=== PATIENT | male | born 1940 | race African-American/Black ===

== ENCOUNTER 2019-08-10 07:31 | Inpatient (IN) | payer MEDICARE, MEDICAID ==
[~2019-08-10 07:31] MED LIST: DEXTROSE 5%-WATER 250 ML with NOREPINEPHRINE BITARTRATE 8 MG IV PRN
[2019-08-10] MEDS ORDERED: CEFTRIAXONE INJ 1000 MG VIAL IV ONE (07:51)
[2019-08-10] MEDS ORDERED: VANCOMYCIN HCL INJ 1000 MG VIAL IV ONE (07:52)
--- NOTE | 2019-08-10 08:21 | RADIOLOGY REPORT (SQ) ---
EXAM DESCRIPTION: CHEST SINGLE VIEW COMPLETED DATE/TIME: 08/10/2019 7:58 am REASON FOR STUDY: post intubation COMPARISON: 04/19/2015 EXAM PARAMETERS: NUMBER OF VIEWS: Single AP view TECHNIQUE: Single frontal radiographic view of the chest acquired. RADIATION DOSE: NA LIMITATIONS: Patient rotation. FINDINGS: LUNGS AND PLEURA: No opacities, masses or pneumothorax. Minimal blunting of the left cost ophrenic angle possibly trace effusion versus scarring. MEDIASTINUM AND HILAR STRUCTURES: No masses. Contour normal. HEART AND VASCULAR STRUCTURES: Normal heart size. Aortic atherosclerosis. BONES: No acute findings. HARDWARE: Endotracheal tube tip at the thoracic inlet, 9.2 cm above the darius. Enteric tube tip ove rlies gastric body. OTHER: Gas-filled colonic loops under the right hemidiaphragm. IMPRESSION: Endotracheal tube tip at the thoracic inlet, 9.2 cm above the darius. Consider cherise cheng TECHNICAL DOCUMENTATION: JOB ID: [id number] [employer]- All Rights Reserved Reading location - IP/workstation name: [email or web address]
--- NOTE | 2019-08-10 08:25 | ER Document Report ---
ED General - General Chief Complaint: Other Stated Complaint: SEPSIS Time Seen by Provider: 08/10/19 08:00 Mode of Arrival: Medic Information source: Outside Facility Records Cannot obtain history due to: Dementia, Intubated, Uncooperative, Altered mental status Notes: Patient transferred from [facility] by EMS with a fever of 107.4. Patient has a history of dementia and seizures treated with Keppra. Patient is apparently full code. Source of fever likely sepsis. Patient was intubated by EMS in route here via RSI. ET tube. #7 temperature down to 104.2 axillary on arrival. Patient was started on IV fluid and levofed for hypotension en route. History and physical limited by patient's age and condition and dementia. 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 His primary care physician is Dr. Perez. His prior admissions here have been reviewed. TRAVEL OUTSIDE OF THE [place] IN LAST 30 DAYS: No - Related Data Allergies/Adverse Reactions: Iuxthfq-Lju-Fon Reductase Inhibitor Allergy (Unknown, Verified 07/17/16 08:01) Past Medical History - Social History Smoking Status: Unknown if Ever Smoked Family History: None, Hypertension - Past Medical History Cardiac Medical History: Reports: Hx Hypercholesterolemia, Hx Hypertension Denies: Hx Coronary Artery Disease, Hx Heart Attack Pulmonary Medical History: Denies: Hx Asthma, Hx Bronchitis, Hx COPD, Hx Pneumonia Neurological Medical History: Reports: Hx Cerebrovascular Accident - Paralysis on left arm, Hx Seizures Renal/ Medical History: Reports: Hx Benign Prostatic Hyperplasia GI Medical History: Reports: Hx Gastroesophageal Reflux Disease Musculoskeletal Medical History: Reports Hx Arthritis, Reports Hx Gout Past Surgical History: Reports: Hx Neurologic Surgery - Immunizations Hx Diphtheria, Pertussis, Tetanus Vaccination: Yes Review of Systems - Review of Systems -: Yes ROS unobtainable due to patient's medical condition Physical Exam - Vital signs Vitals: Resp BP Pulse Ox 15 153/75 H 99 08/10/19 08:15 08/10/19 08:15 08/10/19 08:15 Interpretation: Tachycardic, Febrile - General General appearance: Unresponsive - HEENT Head: Normocephalic, Atraumatic. No: Open wounds Eyes: Normal Conjunctiva: Normal Pupils: PERRL, Pinpoint Nasal: Normal Mouth/Lips: Normal Mucous membranes: Normal Pharynx: Normal Notes: INTUBATED - Respiratory Respiratory status: Respiratory distress Breath sounds: Normal - Cardiovascular Rhythm: Regular, Tachycardia Pulses: Normal: Radial - Abdominal Inspection: Other - R INGUINIAL HERNIA Distension: No distension Bowel sounds: Normal Tenderness: No: Rebound - Back Back: Normal - Extremities General upper extremity: Other - CONTRACTURE LUE - Neurological Neuro grossly intact: No - UNRESPONSIVE - Skin Skin Temperature: Hot Course - Re-evaluation Re-evalutation: 08/10/19 08:30 EKG per me shows sinus tachycardia at a rate of 113 with multiple premature ventricular contractions. QTc is prolonged at 510. Normal QRS axis. To treat high temperature, ice topical and cooling blanket have been ordered. Patient received 1 L of IV fluid in route and 2 more liters have been ordered. Per sepsis protocol I have ordered triple antibiotics IV. Cultures have also been ordered. Patient had an elevated lactate of 7 at [facility]. I anticipate admission to the ICU. Patient's blood pressure has come up to 110/70. 08/10/19 10:45 Discussed case in detail with Dr. Atkinson the bell cleaner who agrees to accept the patient to the ICU. Lab work has been reviewed. Chest x-ray per radiologist shows that the ET tube is 9 cm above the darius and we have advanced it [address] brain per radiologist shows no acute disease but old pathology from prior bleed. Patient is currently stable. We have been able to wean him off of the levo fed. His temperature has normalized down to 97 degrees. He has not woken up. - Vital Signs Vital signs: Temp Pulse Resp BP Pulse Ox 97.6 F 71 15 102/61 98 08/10/19 13:45 08/10/19 13:45 08/10/19 13:45 08/10/19 13:03 08/10/19 13:45 - Laboratory Result Diagrams: 08/10/19 08:12 08/10/19 08:12 Laboratory results interpreted by me: 08/10/19 08/10/19 08/10/19 08:12 08:12 08:12 RBC 3.69 L Hgb 10.6 L Hct 33.1 L RDW 17.6 H Plt Count 126 L Seg Neuts % (Manual) 79 H Band Neutrophils % 1 L PT 17.6 H Carbonic Acid ABG pCO2 ABG pO2 ABG HCO3 ABG Total CO2 ABG O2 Saturation Sodium 149.7 H Chloride 113 H Carbon Dioxide 17 L Anion Gap 20 H BUN 26 H Creatinine 1.92 H Est GFR ( Amer) 41 L Est GFR (MDRD) Non-Af 34 L Glucose 128 H Lactic Acid Calcium 7.7 L AST 64 H Total Protein 5.8 L Albumin 2.5 L Urine Blood 08/10/19 08/10/19 08/10/19 08:20 08:51 09:30 RBC Hgb Hct RDW Plt Count Seg Neuts % (Manual) Band Neutrophils % PT Carbonic Acid 0.92 L ABG pCO2 30.5 L ABG pO2 115.6 H ABG HCO3 16.3 L ABG Total CO2 17.2 L ABG O2 Saturation 98.1 H Sodium Chloride Carbon Dioxide Anion Gap BUN Creatinine Est GFR ( Amer) Est GFR (MDRD) Non-Af Glucose Lactic Acid 5.8 H Calcium AST Total Protein Albumin Urine Blood LARGE H Critical Care Note - Critical Care Note Total time excluding time spent on procedures (mins): 82 Discharge - Discharge Clinical Impression: Sepsis Qualifiers: Sepsis type: sepsis due to unspecified organism Sepsis acute organ dysfunction status: unspecified Qualified Code(s): A41.9 - Sepsis, unspecified organism Heat stroke Qualifiers: Encounter type: initial encounter Qualified Code(s): T67.01XA - Heatstroke and sunstroke, initial encounter Dementia Qualifiers: Dementia type: unspecified type Dementia behavioral disturbance: with behavioral disturbance Qualified Code(s): F03.91 - Unspecified dementia with behavioral disturbance Condition: Critical Disposition: ADMITTED INPATIENT Admitting Provider: Demetrio (Cushion Worker) Unit Admitted: ICU ED Sepsis - Sepsis Documentation Sepsis Patient: Yes - Vital Signs Interpretation: Tachycardic
[2019-08-10 08:38] LABS: HEMATOCRIT 33.1 % (37.9-51.0); HEMOGLOBIN 10.6 g/dL (13.5-17.0); MEAN CORPUSCULAR HEMOGLOBIN 28.7 pg (27.0-33.4); MEAN CORPUSCULAR HGB CONC 32.1 g/dL (32.0-36.0); MEAN CORPUSCULAR VOLUME 90 fl (80-97); PLATELET COUNT 126 10^3/uL (150-450); RED BLOOD COUNT 3.69 10^6/uL (4.35-5.55); RED CELL DISTRIBUTION WIDTH 17.6 % (11.5-14.0); WHITE BLOOD COUNT 9.4 10^3/uL (4.0-10.5)
[2019-08-10] MEDS ORDERED: PROPOFOL 1,000 MG/100 ML INFUS..BTL IV PRN (08:38)
[2019-08-10 08:41] LABS: INTERNATIONAL RATION (INR) 1.43; PROTHROMBIN TIME 17.6 SEC (11.4-15.4)
[2019-08-10 09:00] LABS: ALBUMIN 2.5 g/dL (3.5-5.0); ALKALINE PHOSPHATASE 60 U/L (38-126); ASPARTATE AMINO TRANSFERASE 64 U/L (17-59); BILIRUBIN,DIRECT 0.3 mg/dL (0.0-0.4); BILIRUBIN,TOTAL 0.6 mg/dL (0.2-1.3); BLOOD UREA NITROGEN 26 mg/dL (7-20); CALCIUM 7.7 mg/dL (8.4-10.2); CARBON DIOXIDE 17 mmol/L (22-30); CHLORIDE 113 mmol/L (98-107); GLUCOSE 128 mg/dL (75-110); POTASSIUM 3.9 mmol/L (3.6-5.0); TOTAL PROTEIN 5.8 g/dL (6.3-8.2)
[2019-08-10 09:01] LABS: ABSOLUTE LYMPHOCYTES# (MANUAL) 1.3 10^3/uL (0.5-4.7); ABSOLUTE MONOCYTES # (MANUAL) 0.5 10^3/uL (0.1-1.4); BAND NEUTROPHILS % (MANUAL) 1 % (3-5); BASOPHILS % (MANUAL) 1 % (0-2); EOSINOPHILS % (MANUAL) 0 % (0-6); LYMPHOCYTES % (MANUAL) 14 % (13-45); MONOCYTES % (MANUAL) 5 % (3-13); NUCLEATED RED BLOOD CELLS 1 /100 WBC (0); SEGMENTED NEUTROPHILS % (MAN) 79 % (42-78); TOTAL CELLS COUNTED 100
[2019-08-10 09:02] LABS: PLATELET COMMENT DECREASED
[2019-08-10 09:03] LABS: POIKILOCYTOSIS SLIGHT; TEAR DROP CELLS SLIGHT
[2019-08-10 09:08] LABS: ANION GAP 20 (5-19)
[2019-08-10] MEDS ORDERED: NOREPINEPHRINE BITARTRATE INJ/PF 4 MG/4 ML SDV IV ONE (09:11)
[2019-08-10 09:15] LABS: ARTERIAL BLOOD FIO2 40%; ARTERIAL BLOOD H2CO3 0.92 mmol/L (1.05-1.35); ARTERIAL BLOOD HCO3 16.3 mmol/L (20-24); ARTERIAL BLOOD O2 SATURATION 98.1 % (94-98); ARTERIAL BLOOD PCO2 30.5 mmHg (35-45); ARTERIAL BLOOD PH 7.35 (7.35-7.45); ARTERIAL BLOOD PO2 115.6 mmHg (80-100); ARTERIAL BLOOD TOTAL CO2 17.2 mmol/L (23-27)
[2019-08-10 09:53] LABS: APPEARANCE,URINE CLEAR; BILIRUBIN,URINE NEGATIVE (NEGATIVE); COLOR,URINE STRAW; GLUCOSE, URINE NEGATIVE (NEGATIVE); KETONES,URINE NEGATIVE (NEGATIVE); LEUKOCYTE ESTERASE,URINE NEGATIVE (NEGATIVE); NITRITE,URINE NEGATIVE (NEGATIVE); PROTEIN,URINE NEGATIVE (NEGATIVE); URIC ACID CRYSTALS,URINE TOO NUMEROUS TO CNT /HPF; URINE SPECIFIC GRAVITY 1.004; UROBILINOGEN,URINE NEGATIVE mg/dL (<2.0)
--- NOTE | 2019-08-10 10:35 | RADIOLOGY REPORT (SQ) ---
EXAM DESCRIPTION: CT HEAD WITHOUT COMPLETED DATE/TIME: 08/10/2019 10:25 am REASON FOR STUDY: SEIZURE COMPARISON: 04/19/2015 TECHNIQUE: Axial images acquired through the brain without intravenous contrast. Images reviewed wi th bone, brain and subdural windows. Additional sagittal and coronal reconstructions were generated. Images stored on PACS. All CT scanners at this facility use dose modulation, iterative reconstruction, and/or weight based d osing when appropriate to reduce radiation dose to as low as reasonably achievable (ALARA). [facility]: Dose Right [facility]: CareDose [facility]: Dose Right [facility]: Teradose 4D [facility]: Smart HappyBox RADIATION DOSE: CT Rad equipment meets quality standard of care and radiation dose reduction techniq ues were employed. CTDIvol: 53.2 mGy. DLP: 964 mGy-cm.mGy. LIMITATIONS: None. FINDINGS: VENTRICLES: Prominent. CEREBRUM: No masses. No hemorrhage. No midline shift. Areas of low density in the white matter mos t likely due to chronic micro-vascular ischemic change. No evidence for acute infarction. CEREBELLUM: No masses. No hemorrhage. No alteration of density. No evidence for acute infarction. EXTRAAXIAL SPACES: Age-related involutional change. No fluid collections. No masses. ORBITS AND GLOBE: No intra- or extraconal masses. Normal contour of globe without masses. CALVARIUM: No fracture. PARANASAL SINUSES: No fluid or mucosal thickening. SOFT TISSUES: No mass or hematoma. OTHER: No other significant finding. IMPRESSION: CHRONIC CHANGES OF ATROPHY AND MICROVASCULAR ISCHEMIA. NO ACUTE PROCESS. EVIDENCE OF ACUTE STROKE: NO. TECHNICAL DOCUMENTATION: JOB ID: [id number] Quality ID # [id number]: Final reports with documentation of one or more dose reduction techniques (e.g., Au tomated exposure control, adjustment of the mA and/or kV according to patient size, use of iterative reconstruction technique) 2010 [employer]- All Rights Reserved Reading location - IP/workstation name: [email or web address]
[2019-08-10] MEDS ORDERED: NORMAL SALINE 1000 ML 2,000 ML IV PRN (10:40)
[2019-08-10] MEDS ORDERED: NORMAL SALINE 1000 ML 1,000 ML IV PRN (10:49)
[2019-08-10] MEDS ORDERED: RINGERS SOLUTION,LACTATED 1,000 ML IV ONE ×2 (11:45)
[2019-08-10] MEDS ORDERED: VANCOMYCIN HCL 0 MG in DEXTROSE 5%-WATER 250 ML IV NR (11:45)
[2019-08-10] MEDS ORDERED: ONDANSETRON HCL INJ/PF 4 MG/2 ML SDV IV PRN (14:26)
[2019-08-10] MEDS ORDERED: IPRATROPIUM/ALBUTEROL 0.5-2.5 MG/3 ML AMPUL NEB PRN (14:26)
[2019-08-10] MEDS ORDERED: DEXTROSE 40% GEL 15 GM TUBE PO PRN ×2 (14:35)
[2019-08-10] MEDS ORDERED: GLUCAGON,HUMAN RECOMB 1 MG INJ IM PRN (14:35)
[2019-08-10] MEDS ORDERED: DEXTROSE 50%-WATER 25 GM/50 ML DISP.SYRIN IV PRN ×2 (14:35)
[2019-08-10] MEDS ORDERED: LEVETIRACETAM 500 MG in NORMAL SALINE 100 ML IV SCH (14:38)
--- NOTE | 2019-08-10 14:57 | CRITICAL CARE ADMISSION REPORT ---
HPI Date:: 08/10/19 Time:: 14:40 Reason for ICU Reason:: acute respirtory failure, septic shock,altered mental status HPI: Pt is an 79 yo man who resides in a NH. He has a h/o CVA, SAH, hemiplegia, dementia, HTN, who presented to the ED today. He was found to be severly hyperthermic with a temp of 108 at the NM. He was also altered. He was intubated by EMS. In the ED, he was cooled and was given IVF. He was also started on levophed and started on broad spectrum ATBX. He underwent a head CT which was negative for any acute findings. Upon arrival to the ICU, pt is intubated and unresponsive. He is currently off levophed and has an SBP in the 130s. - Diagnosis/Plan (1) Acute respiratory failure Qualifiers: Respiratory failure complication: unspecified whether with hypoxia or hypercapnia Qualified Code(s): J96.00 - Acute respiratory failure, unspecified whether with hypoxia or hypercapnia Is this a current diagnosis for this admission?: Yes (2) Septic shock Is this a current diagnosis for this admission?: Yes (3) Hyperthermia Is this a current diagnosis for this admission?: Yes (4) FABI (acute kidney injury) Is this a current diagnosis for this admission?: Yes (5) Seizure disorder Is this a current diagnosis for this admission?: Yes (6) H/O: CVA (cerebrovascular accident) Is this a current diagnosis for this admission?: Yes (7) SAH (subarachnoid hemorrhage) Is this a current diagnosis for this admission?: No (8) Dementia Qualifiers: Dementia type: unspecified type Is this a current diagnosis for this admission?: Yes (9) Encephalopathy Is this a current diagnosis for this admission?: Yes Past Medical History Past Medical History: CKD III, SAH, cerebral aneurysm, CVA, HLD, HTN, dementia, OA, BPH, bipolar disorder, aphasia Cardiac Medical History: Reports: Hyperlipidema, Hypertension Denies: Coronary Artery Disease, Myocardial Infarction Pulmonary Medical History: Denies: Asthma, Bronchitis, Chronic Obstructive Pulmonary Disease (COPD), Pneumonia Neurological Medical History: Reports: Seizures GI Medical History: Reports: Gastroesophageal Reflux Disease Musculoskeltal Medical History: Reports: Arthritis, Gout Hematology: Denies: Anemia Social/Family History - Social History Lives with: Mcfp Smoking Status: Unknown if Ever Smoked Frequency of Alcohol Use: Rare Hx Recreational Drug Use: No Hx Prescription Drug Abuse: No - Medication/Allergies Home Medications: Acetaminophen [Mapap] 5 ml PO Q4HP PRN 08/10/19 Amlodipine Besylate [Norvasc 5 mg Tablet] 5 mg PO QAM 08/10/19 Ammonium Lactate [Lac-Hydrin 12% Lotion 225Gm/Bottle] 1 applic TP ASDIR PRN 08/10/19 Atorvastatin Calcium [Lipitor 40 mg Tablet] 40 mg PO QHS 08/10/19 Carvedilol [Coreg 25 mg Tablet] 1 tab PO BID 08/10/19 Clonidine HCl [Catapres] 0.2 mg PO TID 08/10/19 Hydralazine HCl [Apresoline 50 mg Tablet] 50 mg PO TID 08/10/19 Levetiracetam [Keppra] 500 mg PO BIDP PRN 08/10/19 Melatonin [Melatonin 3 mg Tablet] 3 mg PO QHS 08/10/19 Omeprazole 20 mg PO QAM 08/10/19 Sertraline HCl [Zoloft] 100 mg PO QAM 08/10/19 Allergies/Adverse Reactions: Wyjlvap-Lue-Zdf Reductase Inhibitor Allergy (Unknown, Verified 07/17/16 08:01) Review of Systems ROS unobtainable: Due to endotracheal tube Physical Exam Vital Signs: Temp Pulse Resp BP Pulse Ox 97.6 F 71 15 102/61 98 08/10/19 13:45 08/10/19 13:45 08/10/19 13:45 08/10/19 13:03 08/10/19 13:45 Intake & Output 08/09/19 08/10/19 08/11/19 06:59 06:59 06:59 Intake Total 4670 Balance 4670 Weight 57.6 kg Weight/Height Weight 57.6 kg Height 5 ft 4 in General appearance: PRESENT: no acute distress, well-developed, well-nourished, other - intubated, unresponsive Head exam: PRESENT: atraumatic, normocephalic Neck exam: PRESENT: other - FROM, no stiffness Respiratory exam: PRESENT: clear to auscultation jason, unlabored Cardiovascular exam: PRESENT: RRR GI/Abdominal exam: PRESENT: soft, other - NTND Gentrourinary exam: PRESENT: indwelling catheter Extremities exam: PRESENT: other - contractures Laboratory/Radiographs Laboratory Results: 08/10/19 08:12 08/10/19 08:12 08/10/19 08/10/19 08/10/19 08:12 08:12 08:20 WBC 9.4 RBC 3.69 L Hgb 10.6 L Hct 33.1 L MCV 90 MCH 28.7 MCHC 32.1 RDW 17.6 H Plt Count 126 L Seg Neutrophils % Not Reportable Carbonic Acid HCO3/H2CO3 Ratio ABG pH ABG pCO2 ABG pO2 ABG HCO3 ABG O2 Saturation ABG Base Excess FiO2 Sodium 149.7 H Potassium 3.9 Chloride 113 H Carbon Dioxide 17 L Anion Gap 20 H BUN 26 H Creatinine 1.92 H Est GFR ( Amer) 41 L Glucose 128 H Lactic Acid 5.8 H Calcium 7.7 L Magnesium 1.8 Total Bilirubin 0.6 AST 64 H Alkaline Phosphatase 60 Total Protein 5.8 L Albumin 2.5 L Urine Color Urine Appearance Urine pH Ur Specific [place] Urine Protein Urine Glucose (UA) Urine Ketones Urine Blood Urine Nitrite Ur Leukocyte Esterase Urine WBC (Auto) Urine RBC (Auto) 08/10/19 08/10/19 08/10/19 08:51 09:30 11:27 WBC RBC Hgb Hct MCV MCH MCHC RDW Plt Count Seg Neutrophils % Carbonic Acid 0.92 L HCO3/H2CO3 Ratio 17:1 ABG pH 7.35 ABG pCO2 30.5 L ABG pO2 115.6 H ABG HCO3 16.3 L ABG O2 Saturation 98.1 H ABG Base Excess -8.0 FiO2 40% Sodium Potassium Chloride Carbon Dioxide Anion Gap BUN Creatinine Est GFR ( Amer) Glucose Lactic Acid 4.4 H Calcium Magnesium Total Bilirubin AST Alkaline Phosphatase Total Protein Albumin Urine Color STRAW Urine Appearance CLEAR Urine pH 8.0 Ur Specific [place] 1.004 Urine Protein NEGATIVE Urine Glucose (UA) NEGATIVE Urine Ketones NEGATIVE Urine Blood LARGE H Urine Nitrite NEGATIVE Ur Leukocyte Esterase NEGATIVE Urine WBC (Auto) 6 Urine RBC (Auto) >182 Impressions: Chest X-Ray 08/10/19 07:40 IMPRESSION: Endotracheal tube tip at the thoracic inlet, 9.2 cm above the darius. Consider advancing. Head CT 08/10/19 08:50 IMPRESSION: CHRONIC CHANGES OF ATROPHY AND MICROVASCULAR ISCHEMIA. NO ACUTE PROCESS. EVIDENCE OF ACUTE STROKE: NO. All labs, radiographs, diagnostic studies and EKGs were personally reviewed: Yes Critical Time Critical Time (minutes): 60 -: The care of a critically ill patient is dynamic. This note represents a static moment in the admission process. Orders and treatments may be given simultaneously and urgently, and time is not screening representative of the treatment process. This patient requires Critical Care secondary to life threatening organ or limb dysfunction. Without Critical Care services, the patient is at risk for increased mortality and morbidity. Provider Note Provider Note: Assessment: Critically ill 79 yo man with acute respiratory failure, septic shock, hyperthermia, encephalopathy, FABI, h/o seizure disorder, h/o CVA, h/o SAH. Plan: 1. Respiratory: acute respiratory failure. Intubated by EMS. Continue full vent support 2. CV: hypotension, resolved. Pt is off levophed. SBP in the 120s. Continue IVF 3. Neuro: fever, encephalopathy. LP by radiology today to eval for meningitis. Seizure disorder. Continue Keppra. EEG. Check TSH, UDS, and ammonia. 4. ID: septic shock, possible menigitis. LP today. Vanc and zosyn. Cultures pending. Check for influenza 5. Renal: FABI, CKD III. Metabolic acidosis. Start bicarb drip 6. Endocrine: accuchecks, SSI 7. Nutrition: NPO 8. Prophlxis: scds. No pharmacologic DVT prophylaxis pending LP. Critical Care time = 60 min, excluding procedures
--- NOTE | 2019-08-10 16:17 | Progress Note ---
Provider Note Provider Note: Pt went to radiology to get an LP. They were unsuccessful with the LP due to the patient's difficult anatomy.
--- NOTE | 2019-08-10 16:27 | EKG REPORT ---
SEVERITY:- ABNORMAL ECG - SINUS TACHYCARDIA REPOL ABNRM SUGGESTS ISCHEMIA, ANT-LAT LEADS PROLONGED QT INTERVAL : Confirmed by: Britta Bey MD 10-Aug-2019 16:26:24
[2019-08-10] MEDS: LEVETIRACETAM 500 MG/NACL-ISO 500 MG/100 ML RTUPB IV SCH (16:29)
[2019-08-10] MEDS: DEXTROSE 5%-WATER 1000 ML 1,000 ML with SODIUM BICARBONATE 150 MEQ IV PRN ×2 (16:30)
--- NOTE | 2019-08-10 16:30 | RADIOLOGY REPORT (SQ) ---
EXAM DESCRIPTION: LUMBAR PUNCTURE; FLUORO/NEEDLE PLACEMENT/SPINE COMPLETED DATE/TIME: 08/10/2019 4:15 pm REASON FOR STUDY: fever, altered mental status; FEVER, AMS COMPARISON: None. FLUOROSCOPY TIME: 59 seconds of fluoroscopy was used. 2 images saved to PACS. TECHNIQUE: Fluoroscopic guided lumbar puncture. LIMITATIONS: None. PROCEDURE: After written consent and assessment were obtained, the patient was brought into the fluo roscopy room and placed prone on the table. The patient's lower back was prepped in a sterile fashio n and an entry site was selected under live fluoroscopic guidance. The entry sites were anesthetized with 1% lidocaine. Multiple attempts were made for access into the thecal sac from the right paracen tral approach at the L3-4 and L4-5 levels which were unsuccessful due to osteophyte formation. An ad ditional attempt at paracentral approach at the L3-4 level was again unsuccessful. A fluoroscopic sp ot image was saved to PACS confirming level access. FINDINGS: Unsuccessful lumbar puncture IMPRESSION: Unsuccessful lumbar puncture due to severe degenerative changes and osteophyte formation s. Findings were discussed with Dr. Atkinson in the ICU. COMMENT: Patient medication list reviewed: Yes- Quality ID# [id number]:Eligible professional attests to doc umenting in the medical record they obtained, updated, or reviewed the patient's current medications. . Quality ID 145: Final reports for procedures using fluoroscopy that document radiation exposure nj niki, or exposure time and number of fluorographic images (if radiation exposure indices are not avail able) TECHNICAL DOCUMENTATION: JOB ID: [id number] [employer]- All Rights Reserved Reading location - IP/workstation name: [email or web address] [id number]
--- NOTE | 2019-08-10 16:30 | RADIOLOGY REPORT (SQ) ---
EXAM DESCRIPTION: LUMBAR PUNCTURE; FLUORO/NEEDLE PLACEMENT/SPINE COMPLETED DATE/TIME: 08/10/2019 4:15 pm REASON FOR STUDY: fever, altered mental status; FEVER, AMS COMPARISON: None. FLUOROSCOPY TIME: 59 seconds of fluoroscopy was used. 2 images saved to PACS. TECHNIQUE: Fluoroscopic guided lumbar puncture. LIMITATIONS: None. PROCEDURE: After written consent and assessment were obtained, the patient was brought into the fluo roscopy room and placed prone on the table. The patient's lower back was prepped in a sterile fashio n and an entry site was selected under live fluoroscopic guidance. The entry sites were anesthetized with 1% lidocaine. Multiple attempts were made for access into the thecal sac from the right paracen tral approach at the L3-4 and L4-5 levels which were unsuccessful due to osteophyte formation. An ad ditional attempt at paracentral approach at the L3-4 level was again unsuccessful. A fluoroscopic sp ot image was saved to PACS confirming level access. FINDINGS: Unsuccessful lumbar puncture IMPRESSION: Unsuccessful lumbar puncture due to severe degenerative changes and osteophyte formation s. Findings were discussed with Dr. Atkinson in the ICU. COMMENT: Patient medication list reviewed: Yes- Quality ID# [id number]:Eligible professional attests to doc umenting in the medical record they obtained, updated, or reviewed the patient's current medications. . Quality ID 145: Final reports for procedures using fluoroscopy that document radiation exposure nj niki, or exposure time and number of fluorographic images (if radiation exposure indices are not avail able) TECHNICAL DOCUMENTATION: JOB ID: [id number] [employer]- All Rights Reserved Reading location - IP/workstation name: [email or web address] [id number]
[2019-08-10] MEDS: LORAZEPAM INJ 2 MG/1 ML VIAL IV PRN (16:53)
[2019-08-10] MEDS ORDERED: CARVEDILOL 12.5 MG TABLET PO SCH (17:00)
[2019-08-10] MEDS ORDERED: INFLUENZA QUAD (6MOS+) 2019-20 VAC 0.5 ML SYR IM ONE (17:15)
[2019-08-10] MEDS: AMPICILLIN SODIUM 2 GM in NORMAL SALINE 100 ML IV SCH (17:44)
[2019-08-10] MEDS: INSULIN REG, HUMAN 100 UNIT/ML 3 ML VIAL (PYX) SUBCUT SCH ×2 (18:59→23:22)
[2019-08-10] MEDS: CEFTRIAXONE 2 GM/D5W RTU 2 GM/50 ML RTUPB IV SCH (21:55)
[2019-08-10] MEDS ORDERED: PIPERACILLIN SODIUM/TAZOBACTAM 2.25 GM in NORMAL SALINE 50 ML IV SCH (22:00)
[2019-08-10 23:30] LABS: URINE AMPHETAMINES SCREEN NEGATIVE; URINE BARBITURATES SCREEN NEGATIVE; URINE COCAINE SCREEN NEGATIVE; URINE MARIJUANA (THC) SCREEN NEGATIVE; URINE METHADONE SCREEN NEGATIVE; URINE PHENCYCLIDINE SCREEN NEGATIVE
[2019-08-10 23:36] LABS: URINE BENZODIAZEPINES SCREEN UNCONFIRMED POSITIVE
[2019-08-11 02:29] LABS: C DIFFICILE GDH NEGATIVE (NEGATIVE)
[2019-08-11] MEDS: DEXTROSE 5%-WATER 1000 ML 1,000 ML with SODIUM BICARBONATE 150 MEQ IV PRN ×2 (03:43)
[2019-08-11 04:24] LABS: ARTERIAL BLOOD BASE EXCESS -1.3 mmol/L; ARTERIAL BLOOD H2CO3 0.97 mmol/L (1.05-1.35); ARTERIAL BLOOD O2 SATURATION 98.7 % (94-98); ARTERIAL BLOOD PCO2 32.1 mmHg (35-45); ARTERIAL BLOOD PH 7.45 (7.35-7.45); ARTERIAL BLOOD PO2 127.8 mmHg (80-100); ARTERIAL BLOOD TOTAL CO2 22.9 mmol/L (23-27)
[2019-08-11 04:26] LABS: ARTERIAL BLOOD FIO2 30%
[2019-08-11 04:55] LABS: ALBUMIN 2.7 g/dL (3.5-5.0); ALKALINE PHOSPHATASE 79 U/L (38-126); ANION GAP 13 (5-19); ASPARTATE AMINO TRANSFERASE 330 U/L (17-59); BILIRUBIN,TOTAL 1.2 mg/dL (0.2-1.3); BLOOD UREA NITROGEN 33 mg/dL (7-20); CALCIUM 7.4 mg/dL (8.4-10.2); CARBON DIOXIDE 24 mmol/L (22-30); CHLORIDE 110 mmol/L (98-107); GLUCOSE 89 mg/dL (75-110); TOTAL PROTEIN 5.9 g/dL (6.3-8.2)
[2019-08-11] MEDS: INSULIN REG, HUMAN 100 UNIT/ML 3 ML VIAL (PYX) SUBCUT SCH ×4 (05:00→23:31)
[2019-08-11] MEDS: AMPICILLIN SODIUM 2 GM in NORMAL SALINE 100 ML IV SCH ×2 (05:01→17:46)
[2019-08-11] MEDS: LEVETIRACETAM 500 MG/NACL-ISO 500 MG/100 ML RTUPB IV SCH (05:02)
[2019-08-11 05:28] LABS: POTASSIUM 2.9 mmol/L (3.6-5.0)
[2019-08-11 05:55] LABS: HEMATOCRIT 33.1 % (37.9-51.0); MEAN CORPUSCULAR HEMOGLOBIN 28.6 pg (27.0-33.4); MEAN CORPUSCULAR HGB CONC 33.3 g/dL (32.0-36.0); RED BLOOD COUNT 3.85 10^6/uL (4.35-5.55); RED CELL DISTRIBUTION WIDTH 17.5 % (11.5-14.0); WHITE BLOOD COUNT 10.7 10^3/uL (4.0-10.5)
[2019-08-11] MEDS ORDERED: PANTOPRAZOLE SODIUM 40 MG TABLET.DR PO SCH (06:00)
[2019-08-11 06:33] LABS: MEAN CORPUSCULAR VOLUME 86 fl (80-97)
[2019-08-11 06:34] LABS: PLATELET COUNT 46 10^3/uL (150-450)
[2019-08-11] MEDS ORDERED: FUROSEMIDE INJ/PF 40 MG/4 ML SDV IV ONE (09:00)
[2019-08-11] MEDS: DEXTROSE 5%-1/2 NORMAL SALINE 1,000 ML IV PRN ×2 (09:30→21:24)
[2019-08-11] MEDS: POTASSI CL 20 MEQ/50 ML RIDER 20 MEQ/50 ML RTUPB IV SCH ×2 (09:35→11:22)
[2019-08-11] MEDS: LORAZEPAM INJ 2 MG/1 ML VIAL IV PRN (09:45)
[2019-08-11] MEDS: PANTOPRAZOLE SODIUM 40 MG VIAL IV SCH (09:45)
[2019-08-11] MEDS: CEFTRIAXONE 2 GM/D5W RTU 2 GM/50 ML RTUPB IV SCH ×2 (09:45→21:24)
--- NOTE | 2019-08-11 09:57 | RADIOLOGY REPORT (SQ) ---
EXAM DESCRIPTION: CHEST SINGLE VIEW COMPLETED DATE/TIME: 08/11/2019 9:21 am REASON FOR STUDY: resp failure COMPARISON: AP view of the chest from 08/10/2019 EXAM PARAMETERS: NUMBER OF VIEWS: One view. TECHNIQUE: An AP view of the chest was obtained. RADIATION DOSE: NA LIMITATIONS: None. FINDINGS: LUNGS AND PLEURA: No consolidation, sizeable pleural effusion or pneumothorax. MEDIASTINUM AND HILAR STRUCTURES: No mediastinal or hilar contour abnormality. HEART AND VASCULAR STRUCTURES: The cardiac silhouette and pulmonary vasculature are within normal eason its. BONES: No acute findings. HARDWARE: The tip of the endotracheal tube projects 2.5 cm above the darius. The side hole of the en teric tube projects at the level of the gastroesophageal junction and should be repositioned. OTHER: No other finding. IMPRESSION: 1. The tip of the endotracheal tube projects 2.5 cm above the darius. 2. The side hole of the enteric tube projects at the level of the gastroesophageal junction and shoul d be repositioned (i.e. advanced forward 5 cm). TECHNICAL DOCUMENTATION: JOB ID: [id number] [employer]- All Rights Reserved Reading location - IP/workstation name: [email or web address]
[2019-08-11] MEDS ORDERED: CARVEDILOL 12.5 MG TABLET PO SCH (10:00)
[2019-08-11] MEDS: VANCOMYCIN HCL 500 MG in DEXTROSE 5%-WATER 100 ML IV SCH (10:15)
--- NOTE | 2019-08-11 11:24 | PDOC CRITICAL CARE PROG REPORT ---
General Date:: 08/11/19 - Critical Care Attending Note Resuscitation Status: Full Code Events in the past 12 to 24 Hours:: Pt remains intubated and comatose. Staff reports seizure activity. Staff also reports bloody oral secretions and bleeding from gums and teeth. Reason for ICU Addmission:: acute respirtory failure, septic shock,altered mental status Physical Exam Vital Signs: Temp Pulse Resp BP Pulse Ox 99.0 F 82 15 143/75 H 99 08/11/19 08:00 08/11/19 10:00 08/11/19 10:00 08/11/19 10:00 08/11/19 10:00 Intake & Output 08/10/19 08/11/19 08/12/19 06:59 06:59 06:59 Intake Total 6808 Output Total 1710 110 Balance 5098 -110 Weight 59.4 kg Weight/Height Weight 59.4 kg Height 5 ft 4 in General appearance: PRESENT: no acute distress, well-developed, well-nourished, other - intubated, comatose Head exam: PRESENT: atraumatic, normocephalic Mouth exam: PRESENT: other - poor dentition, bloody oral secretions Respiratory exam: PRESENT: clear to auscultation jason, unlabored Cardiovascular exam: PRESENT: RRR GI/Abdominal exam: PRESENT: soft, other - non-tender, non-distended Gentrourinary exam: PRESENT: other - condom catheter Extremities exam: PRESENT: other - contractures Neurological exam: PRESENT: other - comatose Laboratory/Radiographs Laboratory Results: 08/11/19 05:42 08/11/19 04:09 08/10/19 08/10/19 08/11/19 11:27 14:57 03:51 WBC RBC Hgb Hct MCV MCH MCHC RDW Plt Count Carbonic Acid 0.97 L HCO3/H2CO3 Ratio 22:1 ABG pH 7.45 ABG pCO2 32.1 L ABG pO2 127.8 H ABG HCO3 22.0 ABG O2 Saturation 98.7 H ABG Base Excess -1.3 FiO2 30% Sodium Potassium Chloride Carbon Dioxide Anion Gap BUN Creatinine Est GFR ( Amer) Glucose Lactic Acid 4.4 H 6.5 H Calcium Total Bilirubin AST Alkaline Phosphatase Ammonia Total Protein Albumin TSH 08/11/19 08/11/19 08/11/19 04:09 04:09 04:09 WBC Cancelled RBC Cancelled Hgb Cancelled Hct Cancelled MCV Cancelled MCH Cancelled MCHC Cancelled RDW Cancelled Plt Count Cancelled Carbonic Acid HCO3/H2CO3 Ratio ABG pH ABG pCO2 ABG pO2 ABG HCO3 ABG O2 Saturation ABG Base Excess FiO2 Sodium 146.7 H Potassium 2.9 L* D Chloride 110 H Carbon Dioxide 24 Anion Gap 13 BUN 33 H Creatinine 2.08 H Est GFR ( Amer) 37 L Glucose 89 Lactic Acid Calcium 7.4 L Total Bilirubin 1.2 AST 330 H Alkaline Phosphatase 79 Ammonia Total Protein 5.9 L Albumin 2.7 L TSH 1.48 08/11/19 08/11/19 04:09 05:42 WBC 10.7 H RBC 3.85 L Hgb 11.0 L Hct 33.1 L MCV 86 D MCH 28.6 MCHC 33.3 RDW 17.5 H Plt Count 46 L Carbonic Acid HCO3/H2CO3 Ratio ABG pH ABG pCO2 ABG pO2 ABG HCO3 ABG O2 Saturation ABG Base Excess FiO2 Sodium Potassium Chloride Carbon Dioxide Anion Gap BUN Creatinine Est GFR ( Amer) Glucose Lactic Acid Calcium Total Bilirubin AST Alkaline Phosphatase Ammonia < 8.7 L Total Protein Albumin TSH Impressions: Guidance Fluoroscopy 08/10/19 00:00 IMPRESSION: Unsuccessful lumbar puncture due to severe degenerative changes and osteophyte formations. Findings were discussed with Dr. Atkinson in the ICU. Lumbar Puncture 08/10/19 00:00 IMPRESSION: Unsuccessful lumbar puncture due to severe degenerative changes and osteophyte formations. Findings were discussed with Dr. Atkinson in the ICU. Head CT 08/10/19 08:50 IMPRESSION: CHRONIC CHANGES OF ATROPHY AND MICROVASCULAR ISCHEMIA. NO ACUTE PROCESS. EVIDENCE OF ACUTE STROKE: NO. Chest X-Ray 08/11/19 08:21 IMPRESSION: 1. The tip of the endotracheal tube projects 2.5 cm above the darius. 2. The side hole of the enteric tube projects at the level of the gastroesophageal junction and should be repositioned (i.e. advanced forward 5 cm). Assessment and Plan - Diagnosis (1) Acute respiratory failure Qualifiers: Respiratory failure complication: unspecified whether with hypoxia or hypercapnia Qualified Code(s): J96.00 - Acute respiratory failure, unspecified whether with hypoxia or hypercapnia Is this a current diagnosis for this admission?: Yes (2) Septic shock Is this a current diagnosis for this admission?: Yes (3) Hyperthermia Is this a current diagnosis for this admission?: Yes (4) FABI (acute kidney injury) Is this a current diagnosis for this admission?: Yes (5) Seizure disorder Is this a current diagnosis for this admission?: Yes (6) H/O: CVA (cerebrovascular accident) Is this a current diagnosis for this admission?: Yes (7) SAH (subarachnoid hemorrhage) Is this a current diagnosis for this admission?: No (8) Dementia Qualifiers: Dementia type: unspecified type Dementia behavioral disturbance: with behavioral disturbance Qualified Code(s): F03.91 - Unspecified dementia with behavioral disturbance Is this a current diagnosis for this admission?: Yes (9) Encephalopathy Is this a current diagnosis for this admission?: Yes Plan Summary: Assessment: Critically ill 79 yo man with acute respiratory failure, septic shock, hyperthermia, encephalopathy, FABI, h/o seizure disorder, h/o CVA, h/o SA H, coma,thrombocytopenia Plan: 1. Respiratory: acute respiratory failure. Vent day 2. Continue full vent support 2. CV: HTN. D/C IVF. Give lasix. Increase coreg 3. Neuro: fever, encephalopathy, coma, seizures. LP attempted by radiology yesterday, but was unsuccessful. Will continue to treat empiraclly for meningitis with vanc,ampicillin, rocephin. Pt having seizures. Will increase keppra to 1 gram BID. EEG pending. Unable to get MRI while on vent. 4. ID: septic shock, possible menigitis. LP attempt by radiology was unsuccessful. Day 2 Vanc, ampicillin, rocephin. Cultures pending. Check for in fluenza 5. Renal: FABI, CKD III. Cr has increased to 2.08 from 1.92. Metabolic acidosis has resolved. Will d/c bicarbonate drip. Pt is now hypertensive. Will give lasix. 6. Heme: thrombocytopenia due to sepsis. Pt has not been on any heparin products 7. GI: GERD. Gastritis. Continue IV protonix 8. Endocrine: accuchecks, SSI 9. Nutrition: Dietarty consult for tube feeds 10. Prophlxis: scds. No pharmacologic DVT prophylaxis b/c thrombocytopenia Critical Care time = 45 min, excluding procedures Critical Time Critical Time (minutes): 45 Level of Care: ICU -: 1. The care of a critical patient is a dynamic process. This note is a traffic representative synopsis but static in nature. The timeframe for treatments given in order is not necessarily the actual time these treatments may have been done. 2. This patient requires critical care secondary to ongoing requirements for therapy not offered or safe outside the critical care environment. Transfer to a lower level of care will result in altered life or limb morbidity and mortality. 3. Multidisciplinary rounds completed. 4. ABCDE bundle addressed.
[2019-08-11 13:14] LABS: A TYPE INFLUENZA AG NEGATIVE (NEGATIVE); B INFLUENZA AG NEGATIVE (NEGATIVE)
[2019-08-11] MEDS: LEVETIRACETAM 1000 MG/NACL-ISO 1,000 MG/100 ML RTUPB IV SCH (17:46)
[2019-08-12] MEDS: AMPICILLIN SODIUM 2 GM in NORMAL SALINE 100 ML IV SCH ×3 (05:02→18:53)
[2019-08-12] MEDS: LEVETIRACETAM 1000 MG/NACL-ISO 1,000 MG/100 ML RTUPB IV SCH ×2 (05:02→17:56)
[2019-08-12] MEDS: INSULIN REG, HUMAN 100 UNIT/ML 3 ML VIAL (PYX) SUBCUT SCH ×3 (05:05→18:14)
[2019-08-12 05:24] LABS: ARTERIAL BLOOD BASE EXCESS 2.7 mmol/L; ARTERIAL BLOOD FIO2 25%; ARTERIAL BLOOD H2CO3 0.93 mmol/L (1.05-1.35); ARTERIAL BLOOD HCO3 25.1 mmol/L (20-24); ARTERIAL BLOOD O2 SATURATION 98.7 % (94-98); ARTERIAL BLOOD PH 7.53 (7.35-7.45); ARTERIAL BLOOD PO2 119.1 mmHg (80-100); ARTERIAL BLOOD TOTAL CO2 26.1 mmol/L (23-27)
[2019-08-12 06:12] LABS: HEMATOCRIT 32.7 % (37.9-51.0); HEMOGLOBIN 11.1 g/dL (13.5-17.0); MEAN CORPUSCULAR HEMOGLOBIN 28.6 pg (27.0-33.4); MEAN CORPUSCULAR HGB CONC 33.9 g/dL (32.0-36.0); MEAN CORPUSCULAR VOLUME 84 fl (80-97); RED BLOOD COUNT 3.89 10^6/uL (4.35-5.55); RED CELL DISTRIBUTION WIDTH 17.6 % (11.5-14.0); WHITE BLOOD COUNT 11.9 10^3/uL (4.0-10.5)
[2019-08-12 06:18] LABS: PLATELET COUNT 40 10^3/uL (150-450)
[2019-08-12 06:30] LABS: ALBUMIN 2.7 g/dL (3.5-5.0); ALKALINE PHOSPHATASE 72 U/L (38-126); ANION GAP 11 (5-19); BILIRUBIN,DIRECT 1.4 mg/dL (0.0-0.4); BLOOD UREA NITROGEN 37 mg/dL (7-20); CALCIUM 7.2 mg/dL (8.4-10.2); CARBON DIOXIDE 28 mmol/L (22-30); CHLORIDE 104 mmol/L (98-107); GLUCOSE 84 mg/dL (75-110); TOTAL PROTEIN 6.1 g/dL (6.3-8.2)
--- NOTE | 2019-08-12 07:47 | RADIOLOGY REPORT (SQ) ---
EXAM DESCRIPTION: CHEST SINGLE VIEW COMPLETED DATE/TIME: 08/12/2019 6:15 am REASON FOR STUDY: resp failure COMPARISON: 08/11/2019 FINDINGS: Single-view chest AP portable upright. Endotracheal and nasogastric tubes in good position. Mild retrocardiac opacity, doubt change. Lungs otherwise clear. TECHNICAL DOCUMENTATION: JOB ID: [id number] Reading location - IP/workstation name: [email or web address]
[2019-08-12 07:52] LABS: ASPARTATE AMINO TRANSFERASE 3324 U/L (17-59)
[2019-08-12] MEDS ORDERED: POTASSIUM CHLORIDE 20 MEQ PACKET PO ONE (08:20)
--- NOTE | 2019-08-12 08:53 | PDOC CRITICAL CARE PROG REPORT ---
General Date:: 08/12/19 - Critical Care Attending Note Resuscitation Status: Full Code Events in the past 12 to 24 Hours:: Pt remains intubated. Eyes are open today. Reason for ICU Addmission:: acute respirtory failure, septic shock,altered mental status Physical Exam Vital Signs: Temp Pulse Resp BP Pulse Ox 98.5 F 78 14 159/76 H 97 08/12/19 05:17 08/12/19 07:43 08/12/19 06:00 08/12/19 05:11 08/12/19 06:00 Intake & Output 08/11/19 08/12/19 08/13/19 06:59 06:59 06:59 Intake Total 6808 2273 Output Total 1710 1925 150 Balance 5098 348 -150 Weight 59.4 kg 58.8 kg Weight/Height Weight 58.8 kg Height 5 ft 4 in General appearance: PRESENT: no acute distress, well-developed, well-nourished, other - intubated, eyes open Head exam: PRESENT: atraumatic, normocephalic Respiratory exam: PRESENT: clear to auscultation jason, unlabored Cardiovascular exam: PRESENT: RRR GI/Abdominal exam: PRESENT: soft Gentrourinary exam: PRESENT: indwelling catheter Neurological exam: PRESENT: other - eyes open, unresponsive Laboratory/Radiographs Laboratory Results: 08/12/19 05:55 08/12/19 05:55 08/12/19 08/12/19 08/12/19 04:56 05:55 05:55 WBC 11.9 H RBC 3.89 L Hgb 11.1 L Hct 32.7 L MCV 84 MCH 28.6 MCHC 33.9 RDW 17.6 H Plt Count 40 L Carbonic Acid 0.93 L HCO3/H2CO3 Ratio 26:1 ABG pH 7.53 H ABG pCO2 31.0 L ABG pO2 119.1 H ABG HCO3 25.1 H ABG O2 Saturation 98.7 H ABG Base Excess 2.7 FiO2 25% Sodium 143.3 Potassium 3.0 L* Chloride 104 Carbon Dioxide 28 Anion Gap 11 BUN 37 H Creatinine 2.27 H Est GFR ( Amer) 34 L Glucose 84 Calcium 7.2 L Total Bilirubin 2.0 H AST 3324 H Alkaline Phosphatase 72 Total Protein 6.1 L Albumin 2.7 L Impressions: Guidance Fluoroscopy 08/10/19 00:00 IMPRESSION: Unsuccessful lumbar puncture due to severe degenerative changes and osteophyte formations. Findings were discussed with Dr. Atkinson in the ICU. Lumbar Puncture 08/10/19 00:00 IMPRESSION: Unsuccessful lumbar puncture due to severe degenerative changes and osteophyte formations. Findings were discussed with Dr. Atkinson in the ICU. Head CT 08/10/19 08:50 IMPRESSION: CHRONIC CHANGES OF ATROPHY AND MICROVASCULAR ISCHEMIA. NO ACUTE PROCESS. EVIDENCE OF ACUTE STROKE: NO. Assessment and Plan - Diagnosis (1) Acute respiratory failure Qualifiers: Respiratory failure complication: unspecified whether with hypoxia or hypercapnia Qualified Code(s): J96.00 - Acute respiratory failure, unspecified whether with hypoxia or hypercapnia Is this a current diagnosis for this admission?: Yes (2) Septic shock Is this a current diagnosis for this admission?: Yes (3) Hyperthermia Is this a current diagnosis for this admission?: Yes (4) FABI (acute kidney injury) Is this a current diagnosis for this admission?: Yes (5) Seizure disorder Is this a current diagnosis for this admission?: Yes (6) H/O: CVA (cerebrovascular accident) Is this a current diagnosis for this admission?: Yes (7) SAH (subarachnoid hemorrhage) Is this a current diagnosis for this admission?: No (8) Dementia Qualifiers: Dementia type: unspecified type Dementia behavioral disturbance: with behavioral disturbance Qualified Code(s): F03.91 - Unspecified dementia with behavioral disturbance Is this a current diagnosis for this admission?: Yes (9) Encephalopathy Is this a current diagnosis for this admission?: Yes Plan Summary: Assessment: Critically ill 79 yo man with acute respiratory failure, septic shock, hyperthermia, encephalopathy, FABI, h/o seizure disorder, h/o CVA, h/o SAH, coma,thrombocytopenia Plan: 1. Respiratory: acute respiratory failure. Vent day 3. Pt failed SBT.Continue full vent support 2. CV: HTN. D/C IVF. Give lasix. Bradycardia with coreg. Coreg stopped. Will sta rt norvasc. 3. Neuro: fever, encephalopathy, coma, seizures. LP attempted by radiology 08/10, but was unsuccessful. Will continue to treat empiraclly for meningitis with vanc,ampicillin, rocephin. Continue keppra 1 g BID. EEG pending. Unable to get MRI while on vent. 4. ID: severe sepsis, possible menigitis. LP attempt by radiology 08/10 was unsuccessful. Day 3 Vanc, ampicillin, rocephin. 5. Renal: FABI, CKD III. Cr has increased to 2.27. Pt still has good UOP 6. Heme: thrombocytopenia due to sepsis. Pt has not been on any heparin products 7. GI: GERD. Gastritis. Continue IV protonix 8. Endocrine: accuchecks, SSI 9. Nutrition: Will start tube feeds 10. Prophlxis: scds. No pharmacologic DVT prophylaxis b/c thrombocytopenia Critical Care time = 35 min, excluding procedures Critical Time Critical Time (minutes): 35 Level of Care: ICU -: 1. The care of a critical patient is a dynamic process. This note is a claim representative synopsis but static in nature. The timeframe for treatments given in order is not necessarily the actual time these treatments may have been done. 2. This patient requires critical care secondary to ongoing requirements for therapy not offered or safe outside the critical care environment. Transfer to a lower level of care will result in altered life or limb morbidity and mortality. 3. Multidisciplinary rounds completed. 4. ABCDE bundle addressed.
[2019-08-12] MEDS: CEFTRIAXONE 2 GM/D5W RTU 2 GM/50 ML RTUPB IV SCH ×2 (09:36→21:04)
[2019-08-12] MEDS: PANTOPRAZOLE SODIUM 40 MG VIAL IV SCH (09:37)
[2019-08-12] MEDS: ACETAMINOPHEN 325 MG TABLET PO PRN ×2 (09:48→15:26)
[2019-08-12] MEDS ORDERED: FUROSEMIDE INJ/PF 40 MG/4 ML SDV IV SCH (10:00)
[2019-08-12] MEDS ORDERED: AMLODIPINE BESYLATE 5 MG TABLET PO SCH (10:00)
[2019-08-12] MEDS: VANCOMYCIN HCL 500 MG in DEXTROSE 5%-WATER 100 ML IV SCH (15:26)
[2019-08-12] MEDS ORDERED: NORMAL SALINE 250 ML IV PRN ×2 (18:36)
--- NOTE | 2019-08-12 18:36 | Progress Note ---
Provider Note Provider Note: Called by RN to bedside for oral bleeding. She reports that pt may have bitten his tongue today during a seizure. Pt has poor dentition and is bleeding from his teeth and gums. Platelet count today was 40. Will repeat CBC and INR. Will change ATBX regimen from ampicillin to to unasyn for better gram negative covera ge. Will order platelet transfusion.
[2019-08-12 20:01] LABS: ABSOLUTE MONOCYTES (AUTO) 0.4 10^3/uL (0.1-1.4); ABSOLUTE NEUT (AUTO) 9.9 10^3/uL (1.7-8.2); BASOPHILS % (AUTO) 0.3 % (0-2); HEMATOCRIT 30.4 % (37.9-51.0); HEMOGLOBIN 10.3 g/dL (13.5-17.0); LYMPHOCYTES % (AUTO) 8.6 % (13-45); MEAN CORPUSCULAR HEMOGLOBIN 28.8 pg (27.0-33.4); MEAN CORPUSCULAR VOLUME 85 fl (80-97); MONOCYTES % (AUTO) 3.6 % (3-13); RED BLOOD COUNT 3.59 10^6/uL (4.35-5.55); RED CELL DISTRIBUTION WIDTH 17.8 % (11.5-14.0); SEGMENTED NEUTROPHILS % (AUTO) 87.5 % (42-78); TOTAL CELLS COUNTED % (AUTO) 100 %; WHITE BLOOD COUNT 11.3 10^3/uL (4.0-10.5)
[2019-08-12 20:18] LABS: INTERNATIONAL RATION (INR) 1.69; PROTHROMBIN TIME 20.1 SEC (11.4-15.4)
[2019-08-12 20:34] LABS: PLATELET COUNT 40 10^3/uL (150-450)
[2019-08-12] MEDS ORDERED: AMPICILLIN SOD/SULBACTAM 3 GM VIAL ONE (21:16)
[2019-08-12] MEDS: AMPICILLIN SODIUM/SULBACTAM NA 2 GM in NORMAL SALINE 100 ML IV SCH (21:49)
[2019-08-12 23:26] LABS: ABSOLUTE BASOPHILS # (AUTO) 0.1 10^3/uL (0.0-0.2); ABSOLUTE LYMPHOCYTES (AUTO) 0.8 10^3/uL (0.5-4.7); ABSOLUTE MONOCYTES (AUTO) 0.4 10^3/uL (0.1-1.4); ABSOLUTE NEUT (AUTO) 9.7 10^3/uL (1.7-8.2); BASOPHILS % (AUTO) 0.5 % (0-2); EOSINOPHILS % (AUTO) 0.1 % (0-6); HEMOGLOBIN 10.4 g/dL (13.5-17.0); LYMPHOCYTES % (AUTO) 7.5 % (13-45); MEAN CORPUSCULAR HGB CONC 34.5 g/dL (32.0-36.0); MEAN CORPUSCULAR VOLUME 84 fl (80-97); MONOCYTES % (AUTO) 3.8 % (3-13); RED BLOOD COUNT 3.57 10^6/uL (4.35-5.55); RED CELL DISTRIBUTION WIDTH 17.8 % (11.5-14.0); SEGMENTED NEUTROPHILS % (AUTO) 88.1 % (42-78); TOTAL CELLS COUNTED % (AUTO) 100 %
[2019-08-12 23:28] LABS: PLATELET COUNT 105 10^3/uL (150-450)
[2019-08-12 23:39] LABS: ALBUMIN 2.7 g/dL (3.5-5.0); ALKALINE PHOSPHATASE 70 U/L (38-126); ANION GAP 12 (5-19); BILIRUBIN,DIRECT 1.7 mg/dL (0.0-0.4); BILIRUBIN,TOTAL 2.4 mg/dL (0.2-1.3); BLOOD UREA NITROGEN 38 mg/dL (7-20); CALCIUM 7.3 mg/dL (8.4-10.2); CARBON DIOXIDE 26 mmol/L (22-30); CHLORIDE 104 mmol/L (98-107); GLUCOSE 100 mg/dL (75-110); PHOSPHORUS 3.2 mg/dL (2.5-4.5); POTASSIUM 3.2 mmol/L (3.6-5.0); TOTAL PROTEIN 6.2 g/dL (6.3-8.2)
[2019-08-13 00:16] LABS: ASPARTATE AMINO TRANSFERASE 2087 U/L (17-59)
[2019-08-13] MEDS: INSULIN REG, HUMAN 100 UNIT/ML 3 ML VIAL (PYX) SUBCUT SCH ×4 (00:28→17:31)
[2019-08-13] MEDS ORDERED: POTASSI CL 20 MEQ/50 ML RIDER 20 MEQ/50 ML RTUPB IV ONE (00:49)
[2019-08-13] MEDS ORDERED: MAGNESIUM SULFATE/D5W 1 GM/100 ML RTUPB IV ONE (00:50)
[2019-08-13] MEDS: POTASSI CL 20 MEQ/50 ML RIDER 20 MEQ/50 ML RTUPB IV SCH ×2 (01:05→03:00)
[2019-08-13] MEDS: MAGNESIUM SULFATE/D5W 1 GM/100 ML RTUPB IV SCH ×2 (01:06→02:03)
[2019-08-13] MEDS ORDERED: HYDRALAZINE HCL INJ/PF 20 MG/1 ML SDV ONE (04:19)
[2019-08-13] MEDS ORDERED: HYDRALAZINE HCL INJ/PF 20 MG/1 ML SDV IV ONE (05:00)
[2019-08-13] MEDS: LEVETIRACETAM 1000 MG/NACL-ISO 1,000 MG/100 ML RTUPB IV SCH ×2 (05:14→17:27)
[2019-08-13 05:32] LABS: HEMATOCRIT 30.1 % (37.9-51.0); HEMOGLOBIN 10.4 g/dL (13.5-17.0); MEAN CORPUSCULAR HEMOGLOBIN 29.2 pg (27.0-33.4); MEAN CORPUSCULAR HGB CONC 34.4 g/dL (32.0-36.0); MEAN CORPUSCULAR VOLUME 85 fl (80-97); RED BLOOD COUNT 3.54 10^6/uL (4.35-5.55); RED CELL DISTRIBUTION WIDTH 17.3 % (11.5-14.0); WHITE BLOOD COUNT 10.6 10^3/uL (4.0-10.5)
[2019-08-13 05:42] LABS: ALBUMIN 2.7 g/dL (3.5-5.0); ALKALINE PHOSPHATASE 71 U/L (38-126); ANION GAP 9 (5-19); BILIRUBIN,DIRECT 1.7 mg/dL (0.0-0.4); BILIRUBIN,TOTAL 2.4 mg/dL (0.2-1.3); BLOOD UREA NITROGEN 34 mg/dL (7-20); CALCIUM 7.3 mg/dL (8.4-10.2); CARBON DIOXIDE 27 mmol/L (22-30); CHLORIDE 106 mmol/L (98-107); GLUCOSE 139 mg/dL (75-110); POTASSIUM 3.6 mmol/L (3.6-5.0)
[2019-08-13 06:04] LABS: PLATELET COUNT 97 10^3/uL (150-450)
[2019-08-13 06:07] LABS: ASPARTATE AMINO TRANSFERASE 1607 U/L (17-59)
[2019-08-13] MEDS: HYDRALAZINE HCL 50 MG TABLET PO SCH ×3 (08:24→22:25)
[2019-08-13] MEDS: PANTOPRAZOLE SODIUM 40 MG VIAL IV SCH (09:29)
[2019-08-13] MEDS: AMLODIPINE BESYLATE 10 MG TABLET PO SCH (09:29)
[2019-08-13] MEDS: VANCOMYCIN HCL 500 MG in DEXTROSE 5%-WATER 100 ML IV SCH (09:31)
[2019-08-13] MEDS: CEFTRIAXONE 2 GM/D5W RTU 2 GM/50 ML RTUPB IV SCH ×2 (09:34→22:25)
[2019-08-13] MEDS: AMPICILLIN SODIUM/SULBACTAM NA 2 GM in NORMAL SALINE 100 ML IV SCH ×2 (10:49→22:24)
--- NOTE | 2019-08-13 11:32 | PDOC CRITICAL CARE PROG REPORT ---
General Date:: 08/13/19 - Critical Care Attending Note Resuscitation Status: Full Code Events in the past 12 to 24 Hours:: Pt remains intubated. Got platelet transfusion overnight. Has sinus bradycardia and afib with slow ventricular response. Remains comatose. Reason for ICU Addmission:: acute respirtory failure, septic shock,altered mental status - Medications: Medications reviewed and adjusted accordingly: Yes Physical Exam Vital Signs: Temp Pulse Resp BP Pulse Ox 98.8 F 66 13 139/75 H 98 08/13/19 10:00 08/13/19 10:00 08/13/19 10:00 08/13/19 10:00 08/13/19 10:00 Intake & Output 08/12/19 08/13/19 08/14/19 06:59 06:59 06:59 Intake Total 2273 2313 40 Output Total 1925 1195 150 Balance 348 1118 -110 Weight 58.8 kg 59.9 kg Weight/Height Weight 59.9 kg Height 5 ft 4 in General appearance: PRESENT: no acute distress, thin, well-developed, well- nourished, other - comatose Head exam: PRESENT: atraumatic, normocephalic Mouth exam: PRESENT: other - poor dentition. Bleeding from mouth and gums. Respiratory exam: PRESENT: rhonchi, unlabored Cardiovascular exam: PRESENT: irregular rhythm GI/Abdominal exam: PRESENT: soft - non-tender, non-distended. No rebound, no gaurding. Gentrourinary exam: PRESENT: indwelling catheter Extremities exam: PRESENT: other - no pretibial edema Neurological exam: PRESENT: other - comatose Laboratory/Radiographs Laboratory Results: 08/13/19 04:18 08/13/19 04:18 08/12/19 08/12/19 08/12/19 19:45 19:45 23:07 WBC 11.3 H RBC 3.59 L Hgb 10.3 L Hct 30.4 L MCV 85 MCH 28.8 MCHC 34.0 RDW 17.8 H Plt Count 40 L Seg Neutrophils % 87.5 H Sodium 142.3 Potassium 3.2 L Chloride 104 Carbon Dioxide 26 Anion Gap 12 BUN 38 H Creatinine 2.06 H Est GFR ( Amer) 38 L Glucose 100 Calcium 7.3 L Phosphorus 3.2 Magnesium 1.5 L Total Bilirubin 2.4 H AST 2087 H Alkaline Phosphatase 70 Total Protein 6.2 L Albumin 2.7 L Blood Type A POSITIVE 08/12/19 08/13/19 08/13/19 23:07 04:18 04:18 WBC 11.0 H 10.6 H RBC 3.57 L 3.54 L Hgb 10.4 L 10.4 L Hct 30.0 L 30.1 L MCV 84 85 MCH 29.0 29.2 MCHC 34.5 34.4 RDW 17.8 H 17.3 H Plt Count 105 L D 97 L Seg Neutrophils % 88.1 H Sodium 142.2 Potassium 3.6 Chloride 106 Carbon Dioxide 27 Anion Gap 9 BUN 34 H Creatinine 1.92 H Est GFR ( Amer) 41 L Glucose 139 H Calcium 7.3 L Phosphorus Magnesium Total Bilirubin 2.4 H AST 1607 H Alkaline Phosphatase 71 Total Protein 6.0 L Albumin 2.7 L Blood Type Impressions: Guidance Fluoroscopy 08/10/19 00:00 IMPRESSION: Unsuccessful lumbar puncture due to severe degenerative changes and osteophyte formations. Findings were discussed with Dr. Atkinson in the ICU. Lumbar Puncture 08/10/19 00:00 IMPRESSION: Unsuccessful lumbar puncture due to severe degenerative changes and osteophyte formations. Findings were discussed with Dr. Atkinson in the ICU. Head CT 08/10/19 08:50 IMPRESSION: CHRONIC CHANGES OF ATROPHY AND MICROVASCULAR ISCHEMIA. NO ACUTE PROCESS. EVIDENCE OF ACUTE STROKE: NO. Assessment and Plan - Diagnosis (1) Acute respiratory failure Qualifiers: Respiratory failure complication: unspecified whether with hypoxia or hypercapnia Qualified Code(s): J96.00 - Acute respiratory failure, unspecified whether with hypoxia or hypercapnia Is this a current diagnosis for this admission?: Yes (2) Septic shock Is this a current diagnosis for this admission?: Yes (3) Hyperthermia Is this a current diagnosis for this admission?: Yes (4) FABI (acute kidney injury) Is this a current diagnosis for this admission?: Yes (5) Seizure disorder Is this a current diagnosis for this admission?: Yes (6) H/O: CVA (cerebrovascular accident) Is this a current diagnosis for this admission?: Yes (7) SAH (subarachnoid hemorrhage) Is this a current diagnosis for this admission?: No (8) Dementia Qualifiers: Dementia type: unspecified type Dementia behavioral disturbance: with behavioral disturbance Qualified Code(s): F03.91 - Unspecified dementia with behavioral disturbance Is this a current diagnosis for this admission?: Yes (9) Encephalopathy Is this a current diagnosis for this admission?: Yes (10) Thrombocytopenia Is this a current diagnosis for this admission?: Yes (11) Poor dentition Is this a current diagnosis for this admission?: Yes Plan Summary: Assessment: Critically ill 79 yo man with acute respiratory failure, septic shock, hyperthermia, encephalopathy, FABI, h/o seizure disorder, h/o CVA, h/o SAH, coma,thrombocytopenia, afib Plan: 1. Respiratory: acute respiratory failure. Vent day 4. Pt failed SBT.Continue full vent support 2. CV: HTN. Pt alternates between sinus bradycardia and afib with a slow ventricular rate. Beta blockers have been stopped. Electrolytes replaced. Increased his norvasc and resumed his home hydralazine for HTN. 3. Neuro: fever, encephalopathy, coma, seizures. LP attempted by radiology 08/10, but was unsuccessful. Will continue to treat empirically for meningitis with vanc,unasyn rocephin. Continue keppra 1 g BID. prn ativan. EEG pending. Unable to get MRI while on vent. 4. ID: severe sepsis, possible menigitis. LP attempt by radiology 08/10 was unsuccessful. Day 4 ATBX. Vanc, unasyn, rocephin. 5. Renal: FABI, CKD III. Cr decreased to 1.92. Pt still has good UOP 6. Heme: thrombocytopenia due to sepsis. Pt has not been on any heparin products. Pt with bleeding from mouth. s/p 1 unit of platelets on 08/12 7. ENT: bleeding from teeth and gums. Resolving with platelet transfusion. Will need ENT consult. 8. GI: GERD. Gastritis. Continue IV protonix 9. Endocrine: accuchecks, SSI 10 Nutrition: 0tube feeds 11. Prophlxis: scds. No pharmacologic DVT prophylaxis b/c thrombocytopenia 12. Ethics. Pt is a [place] of APS. Has a very poor prognosis. Is full code. Critical Care time = 40 min, excluding procedures Critical Time Critical Time (minutes): 40 Level of Care: ICU -: 1. The care of a critical patient is a dynamic process. This note is a textile designs sales representative synopsis but static in nature. The timeframe for treatments given in order is not necessarily the actual time these treatments may have been done. 2. This patient requires critical care secondary to ongoing requirements for therapy not offered or safe outside the critical care environment. Transfer to a lower level of care will result in altered life or limb morbidity and mortality. 3. Multidisciplinary rounds completed. 4. ABCDE bundle addressed.
--- NOTE | 2019-08-13 19:35 | EKG REPORT ---
SEVERITY:- ABNORMAL ECG - SINUS RHYTHM NONSPECIFIC REPOL ABNORMALITY, DIFFUSE LEADS PROLONGED QT INTERVAL : Confirmed by: Britta Bey MD 13-Aug-2019 19:34:07
[2019-08-14] MEDS: INSULIN REG, HUMAN 100 UNIT/ML 3 ML VIAL (PYX) SUBCUT SCH ×4 (00:15→18:42)
[2019-08-14 04:38] LABS: ABSOLUTE LYMPHOCYTES (AUTO) 0.8 10^3/uL (0.5-4.7); ABSOLUTE MONOCYTES (AUTO) 0.6 10^3/uL (0.1-1.4); ABSOLUTE NEUT (AUTO) 7.6 10^3/uL (1.7-8.2); BASOPHILS % (AUTO) 0.3 % (0-2); EOSINOPHILS % (AUTO) 0.1 % (0-6); HEMATOCRIT 30.3 % (37.9-51.0); HEMOGLOBIN 10.4 g/dL (13.5-17.0); LYMPHOCYTES % (AUTO) 8.8 % (13-45); MEAN CORPUSCULAR HEMOGLOBIN 29.1 pg (27.0-33.4); MEAN CORPUSCULAR HGB CONC 34.4 g/dL (32.0-36.0); MEAN CORPUSCULAR VOLUME 85 fl (80-97); MONOCYTES % (AUTO) 6.6 % (3-13); PLATELET COUNT 101 10^3/uL (150-450); RED BLOOD COUNT 3.59 10^6/uL (4.35-5.55); RED CELL DISTRIBUTION WIDTH 17.7 % (11.5-14.0); SEGMENTED NEUTROPHILS % (AUTO) 84.2 % (42-78); TOTAL CELLS COUNTED % (AUTO) 100 %
[2019-08-14] MEDS: LEVETIRACETAM 1000 MG/NACL-ISO 1,000 MG/100 ML RTUPB IV SCH ×2 (05:29→18:42)
[2019-08-14] MEDS: HYDRALAZINE HCL 50 MG TABLET PO SCH ×2 (05:29→13:50)
[2019-08-14 06:07] LABS: ALBUMIN 2.6 g/dL (3.5-5.0); ALKALINE PHOSPHATASE 85 U/L (38-126); ANION GAP 8 (5-19); ASPARTATE AMINO TRANSFERASE 623 U/L (17-59); BILIRUBIN,DIRECT 2.1 mg/dL (0.0-0.4); BILIRUBIN,TOTAL 3.1 mg/dL (0.2-1.3); BLOOD UREA NITROGEN 29 mg/dL (7-20); CALCIUM 7.6 mg/dL (8.4-10.2); CARBON DIOXIDE 26 mmol/L (22-30); CHLORIDE 108 mmol/L (98-107); GLUCOSE 94 mg/dL (75-110); POTASSIUM 3.2 mmol/L (3.6-5.0); TOTAL PROTEIN 5.7 g/dL (6.3-8.2)
[2019-08-14] MEDS: POTASSI CL 20 MEQ/50 ML RIDER 20 MEQ/50 ML RTUPB IV SCH ×2 (08:16→10:26)
--- NOTE | 2019-08-14 08:44 | RADIOLOGY REPORT (SQ) ---
EXAM DESCRIPTION: CHEST SINGLE VIEW COMPLETED DATE/TIME: 08/14/2019 6:16 am REASON FOR STUDY: acute respiratory failure COMPARISON: 08/12/2019. EXAM PARAMETERS: NUMBER OF VIEWS: One view. TECHNIQUE: Single frontal radiographic view of the chest acquired. RADIATION DOSE: NA LIMITATIONS: None. FINDINGS: LUNGS AND PLEURA: Left lower lobe retrocardiac density, unchanged. Otherwise clear. No l arge pleural effusion. No pneumothorax. MEDIASTINUM AND HILAR STRUCTURES: No masses. Contour normal. HEART AND VASCULAR STRUCTURES: Heart normal in size. Normal vasculature. BONES: No acute findings. HARDWARE: Stable endotracheal tube and nasogastric tube. OTHER: No other significant finding. IMPRESSION: NO SIGNIFICANT INTERVAL CHANGE. TECHNICAL DOCUMENTATION: JOB ID: [id number] [employer]- All Rights Reserved Reading location - IP/workstation name: [email or web address]
[2019-08-14] MEDS: AMLODIPINE BESYLATE 10 MG TABLET PO SCH (09:46)
[2019-08-14] MEDS: PANTOPRAZOLE SODIUM 40 MG VIAL IV SCH (09:46)
[2019-08-14] MEDS: AMPICILLIN SODIUM/SULBACTAM NA 2 GM in NORMAL SALINE 100 ML IV SCH (09:47)
[2019-08-14] MEDS: VANCOMYCIN HCL 500 MG in DEXTROSE 5%-WATER 100 ML IV SCH (09:49)
[2019-08-14 10:16] LABS: VANCOMYCIN,TROUGH 9.7 ug/mL (5.0-20.0)
[2019-08-14] MEDS: CEFTRIAXONE 2 GM/D5W RTU 2 GM/50 ML RTUPB IV SCH ×2 (11:00→22:43)
--- NOTE | 2019-08-14 11:03 | PDOC CRITICAL CARE PROG REPORT ---
General Date:: 08/14/19 - Critical Care Attending Note Resuscitation Status: Full Code Events in the past 12 to 24 Hours:: Pt remains intubated. Eyes open today, but he is not interactive. Reason for ICU Addmission:: acute respirtory failure, septic shock,altered mental status - Medications: Medications reviewed and adjusted accordingly: Yes Physical Exam Vital Signs: Temp Pulse Resp BP Pulse Ox 99.4 F 74 14 171/88 H 100 08/14/19 08:00 08/14/19 10:00 08/14/19 10:12 08/14/19 10:12 08/14/19 10:12 Intake & Output 08/13/19 08/14/19 08/15/19 06:59 06:59 06:59 Intake Total 2520 917 50 Output Total 1195 1060 175 Balance 1325 -143 -125 Weight 59.9 kg 61.3 kg Weight/Height Weight 61.3 kg Height 5 ft 4 in General appearance: PRESENT: no acute distress, well-developed, well-nourished - intubated, eyes open, not interactive Head exam: PRESENT: atraumatic, normocephalic Teeth exam: PRESENT: poor dentation Cardiovascular exam: PRESENT: irregular rhythm GI/Abdominal exam: PRESENT: soft Gentrourinary exam: PRESENT: indwelling catheter Extremities exam: PRESENT: other - contractures Neurological exam: PRESENT: other - eyes open, not interactive Laboratory/Radiographs Laboratory Results: 08/14/19 03:43 08/14/19 03:43 08/14/19 08/14/19 03:43 03:43 WBC 9.0 RBC 3.59 L Hgb 10.4 L Hct 30.3 L MCV 85 MCH 29.1 MCHC 34.4 RDW 17.7 H Plt Count 101 L Seg Neutrophils % 84.2 H Sodium 142.0 Potassium 3.2 L Chloride 108 H Carbon Dioxide 26 Anion Gap 8 BUN 29 H Creatinine 1.62 H Est GFR ( Amer) 50 L Glucose 94 Calcium 7.6 L Total Bilirubin 3.1 H AST 623 H Alkaline Phosphatase 85 Total Protein 5.7 L Albumin 2.6 L 08/10/19 08:12 Blood Blood Culture (PCR) - Final 08/10/19 20:25 Tracheal Aspirate Gram Stain - Final 08/10/19 20:25 Tracheal Aspirate Sputum Culture - Final Yeast, Not Arielle Albicans Reduced Normal Joann Impressions: Guidance Fluoroscopy 08/10/19 00:00 IMPRESSION: Unsuccessful lumbar puncture due to severe degenerative changes and osteophyte formations. Findings were discussed with Dr. Atkinson in the ICU. Lumbar Puncture 08/10/19 00:00 IMPRESSION: Unsuccessful lumbar puncture due to severe degenerative changes and osteophyte formations. Findings were discussed with Dr. Atkinson in the ICU. Head CT 08/10/19 08:50 IMPRESSION: CHRONIC CHANGES OF ATROPHY AND MICROVASCULAR ISCHEMIA. NO ACUTE PROCESS. EVIDENCE OF ACUTE STROKE: NO. Chest X-Ray 08/14/19 06:00 IMPRESSION: NO SIGNIFICANT INTERVAL CHANGE. Assessment and Plan - Diagnosis (1) Acute respiratory failure Qualifiers: Respiratory failure complication: unspecified whether with hypoxia or hypercapnia Qualified Code(s): J96.00 - Acute respiratory failure, unspecified whether with hypoxia or hypercapnia Is this a current diagnosis for this admission?: Yes (2) Septic shock Is this a current diagnosis for this admission?: Yes (3) Hyperthermia Is this a current diagnosis for this admission?: Yes (4) FABI (acute kidney injury) Is this a current diagnosis for this admission?: Yes (5) Seizure disorder Is this a current diagnosis for this admission?: Yes (6) H/O: CVA (cerebrovascular accident) Is this a current diagnosis for this admission?: Yes (7) SAH (subarachnoid hemorrhage) Is this a current diagnosis for this admission?: No (8) Dementia Qualifiers: Dementia type: unspecified type Dementia behavioral disturbance: with behavioral disturbance Qualified Code(s): F03.91 - Unspecified dementia with behavioral disturbance Is this a current diagnosis for this admission?: Yes (9) Encephalopathy Is this a current diagnosis for this admission?: Yes (10) Thrombocytopenia Is this a current diagnosis for this admission?: Yes (11) Poor dentition Is this a current diagnosis for this admission?: Yes Plan Summary: Assessment: Critically ill 79 yo man with acute respiratory failure, septic shock, hyperthermia, encephalopathy, FABI, h/o seizure disorder, h/o CVA, h/o SAH, coma,thrombocytopenia, afib Plan: 1. Respiratory: acute respiratory failure. Vent day 5. Will attempt SBP 2. CV: HTN. Pt alternates between sinus bradycardia and afib with a slow ventricular rate. Beta blockers have been stopped. Electrolytes replaced. Continue hydralzine and norvasc 3. Neuro: fever, encephalopathy, coma, seizures. Anoxic encephalopathy. LP attempted by radiology 08/10, but was unsuccessful. Will continue to treat empirically for meningitis with vanc,unasyn rocephin. Continue keppra 1 g BID. prn ativan. EEG done today. Unable to get MRI while on vent. 4. ID: severe sepsis, possible menigitis. LP attempt by radiology 08/10 was unsuccessful. Day 5 ATBX. Vanc, unasyn, rocephin. 5. Renal: FABI, CKD III. Cr decreased to 1.62. 6. Heme: thrombocytopenia due to sepsis. Pt has not been on any heparin products. Pt with bleeding from mouth. s/p 1 unit of platelets on 08/12 7. ENT: bleeding from teeth and gums, poor dentition. Resolved with platelet transfusion. Will need ENT consult eventually to have to have teeth pulled 8. GI: GERD. Gastritis. Continue IV protonix 9. Endocrine: accuchecks, SSI 10 Nutrition: tube feeds 11. Prophlxis: scds. No pharmacologic DVT prophylaxis b/c thrombocytopenia 12. Ethics. Pt is a [facility] of [facility]. Has a very poor prognosis. Is full code. Critical Care time = 35 min, excluding procedures Critical Time Critical Time (minutes): 35 Level of Care: ICU -: 1. The care of a critical patient is a dynamic process. This note is a claims service representative synopsis but static in nature. The timeframe for treatments given in order is not necessarily the actual time these treatments may have been done. 2. This patient requires critical care secondary to ongoing requirements for therapy not offered or safe outside the critical care environment. Transfer to a lower level of care will result in altered life or limb morbidity and mortality. 3. Multidisciplinary rounds completed. 4. ABCDE bundle addressed.
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
--- NOTE | 2019-08-14 13:38 | Progress Note ---
Provider Note Provider Note: Spoke with daughter and SW from [facility]. Explained to them that pt is comatose and that his prognosis is very poor. Explained to them his medical conditions. I have recommended that he be made DNR. I also told them that if patient's condition does not improve over the next 1-2 days, that they need to consider withdrawal of care.
[2019-08-14] MEDS: AMPICILLIN SODIUM/SULBACTAM NA 3 GM in NORMAL SALINE 100 ML IV SCH (18:42)
[2019-08-15] MEDS ORDERED: ACETAMINOPHEN 325 MG TABLET NG PRN (00:06)
[2019-08-15] MEDS: INSULIN REG, HUMAN 100 UNIT/ML 3 ML VIAL (PYX) SUBCUT SCH ×4 (00:10→17:50)
[2019-08-15] MEDS: HYDRALAZINE HCL 50 MG TABLET PO SCH (00:11)
[2019-08-15] MEDS ORDERED: HYDRALAZINE HCL 50 MG TABLET NG ONE (01:00)
[2019-08-15] MEDS: AMPICILLIN SODIUM/SULBACTAM NA 3 GM in NORMAL SALINE 100 ML IV SCH ×3 (01:28→17:57)
[2019-08-15 04:36] LABS: ABSOLUTE EOSINOPHILS # (AUTO) 0.1 10^3/uL (0.0-0.6); ABSOLUTE LYMPHOCYTES (AUTO) 0.9 10^3/uL (0.5-4.7); ABSOLUTE MONOCYTES (AUTO) 0.7 10^3/uL (0.1-1.4); ABSOLUTE NEUT (AUTO) 6.6 10^3/uL (1.7-8.2); BASOPHILS % (AUTO) 0.1 % (0-2); EOSINOPHILS % (AUTO) 1.1 % (0-6); HEMATOCRIT 30.6 % (37.9-51.0); HEMOGLOBIN 10.4 g/dL (13.5-17.0); LYMPHOCYTES % (AUTO) 10.5 % (13-45); MEAN CORPUSCULAR HGB CONC 34.1 g/dL (32.0-36.0); MEAN CORPUSCULAR VOLUME 85 fl (80-97); MONOCYTES % (AUTO) 8.5 % (3-13); PLATELET COUNT 120 10^3/uL (150-450); RED BLOOD COUNT 3.59 10^6/uL (4.35-5.55); RED CELL DISTRIBUTION WIDTH 17.9 % (11.5-14.0); SEGMENTED NEUTROPHILS % (AUTO) 79.8 % (42-78); TOTAL CELLS COUNTED % (AUTO) 100 %; WHITE BLOOD COUNT 8.3 10^3/uL (4.0-10.5)
[2019-08-15 05:08] LABS: ALBUMIN 2.6 g/dL (3.5-5.0); ALKALINE PHOSPHATASE 93 U/L (38-126); ANION GAP 9 (5-19); ASPARTATE AMINO TRANSFERASE 293 U/L (17-59); BILIRUBIN,DIRECT 1.9 mg/dL (0.0-0.4); BILIRUBIN,TOTAL 2.8 mg/dL (0.2-1.3); BLOOD UREA NITROGEN 21 mg/dL (7-20); CARBON DIOXIDE 23 mmol/L (22-30); CHLORIDE 111 mmol/L (98-107); GLUCOSE 96 mg/dL (75-110); POTASSIUM 3.4 mmol/L (3.6-5.0); TOTAL PROTEIN 5.8 g/dL (6.3-8.2)
[2019-08-15] MEDS: LEVETIRACETAM 1000 MG/NACL-ISO 1,000 MG/100 ML RTUPB IV SCH ×2 (05:50→17:57)
[2019-08-15] MEDS: HYDRALAZINE HCL 50 MG TABLET NG SCH ×3 (05:53→21:31)
[2019-08-15] MEDS: VANCOMYCIN HCL 750 MG in DEXTROSE 5%-WATER 250 ML IV SCH (05:53)
[2019-08-15] MEDS ORDERED: POTASSIUM CHLORIDE 20 MEQ PACKET PO ONE (07:14)
[2019-08-15] MEDS: AMLODIPINE BESYLATE 10 MG TABLET NG SCH (09:51)
[2019-08-15] MEDS: PANTOPRAZOLE SODIUM 40 MG VIAL IV SCH (09:51)
[2019-08-15] MEDS: CEFTRIAXONE 2 GM/D5W RTU 2 GM/50 ML RTUPB IV SCH ×2 (09:52→21:31)
--- NOTE | 2019-08-15 11:35 | PDOC CRITICAL CARE PROG REPORT ---
General Date:: 08/15/19 - Critical Care Attending Note Resuscitation Status: Do Not Resuscitate Events in the past 12 to 24 Hours:: Pt remains intubated and unresponsive. Reason for ICU Addmission:: acute respirtory failure, septic shock,altered mental status Physical Exam Vital Signs: Temp Pulse Resp BP Pulse Ox 97.7 F 74 19 147/70 H 100 08/15/19 08:00 08/15/19 10:00 08/15/19 10:00 08/15/19 10:00 08/15/19 10:00 Intake & Output 08/14/19 08/15/19 08/16/19 06:59 06:59 06:59 Intake Total 917 843 Output Total 1060 1700 175 Balance -143 -857 -175 Weight 61.3 kg 59.2 kg Weight/Height Weight 59.2 kg Height 5 ft 4 in General appearance: PRESENT: no acute distress, well-developed, well-nourished, other - intubated, NAD, unresponsive. Head exam: PRESENT: atraumatic, normocephalic Respiratory exam: PRESENT: clear to auscultation jason, unlabored Cardiovascular exam: PRESENT: RRR GI/Abdominal exam: PRESENT: soft Gentrourinary exam: PRESENT: indwelling catheter Musculoskeletal exam: PRESENT: other - flexion contractures Neurological exam: PRESENT: other - unresponsive Laboratory/Radiographs Laboratory Results: 08/15/19 03:57 08/15/19 03:57 08/15/19 08/15/19 03:57 03:57 WBC 8.3 RBC 3.59 L Hgb 10.4 L Hct 30.6 L MCV 85 MCH 29.0 MCHC 34.1 RDW 17.9 H Plt Count 120 L Seg Neutrophils % 79.8 H Sodium 143.2 Potassium 3.4 L Chloride 111 H Carbon Dioxide 23 Anion Gap 9 BUN 21 H Creatinine 1.36 H Est GFR ( Amer) > 60 Glucose 96 Calcium 8.0 L Total Bilirubin 2.8 H AST 293 H Alkaline Phosphatase 93 Total Protein 5.8 L Albumin 2.6 L 08/10/19 08:59 Blood Blood Culture - Final NO GROWTH IN 5 DAYS 08/10/19 08:12 Blood Blood Culture (PCR) - Final 08/10/19 08:12 Blood Blood Culture - Final Micrococcus Species Impressions: Guidance Fluoroscopy 08/10/19 00:00 IMPRESSION: Unsuccessful lumbar puncture due to severe degenerative changes and osteophyte formations. Findings were discussed with Dr. Atkinson in the ICU. Lumbar Puncture 08/10/19 00:00 IMPRESSION: Unsuccessful lumbar puncture due to severe degenerative changes and osteophyte formations. Findings were discussed with Dr. Atkinson in the ICU. Head CT 08/10/19 08:50 IMPRESSION: CHRONIC CHANGES OF ATROPHY AND MICROVASCULAR ISCHEMIA. NO ACUTE PROCESS. EVIDENCE OF ACUTE STROKE: NO. Chest X-Ray 08/14/19 06:00 IMPRESSION: NO SIGNIFICANT INTERVAL CHANGE. Assessment and Plan - Diagnosis (1) Acute respiratory failure Qualifiers: Respiratory failure complication: unspecified whether with hypoxia or hypercapnia Qualified Code(s): J96.00 - Acute respiratory failure, unspecified whether with hypoxia or hypercapnia Is this a current diagnosis for this admission?: Yes (2) Septic shock Is this a current diagnosis for this admission?: Yes (3) Hyperthermia Is this a current diagnosis for this admission?: Yes (4) FABI (acute kidney injury) Is this a current diagnosis for this admission?: Yes (5) Seizure disorder Is this a current diagnosis for this admission?: Yes (6) H/O: CVA (cerebrovascular accident) Is this a current diagnosis for this admission?: Yes (7) SAH (subarachnoid hemorrhage) Is this a current diagnosis for this admission?: No (8) Dementia Qualifiers: Dementia type: unspecified type Dementia behavioral disturbance: with behavioral disturbance Qualified Code(s): F03.91 - Unspecified dementia with behavioral disturbance Is this a current diagnosis for this admission?: Yes (9) Encephalopathy Is this a current diagnosis for this admission?: Yes (10) Thrombocytopenia Is this a current diagnosis for this admission?: Yes (11) Poor dentition Is this a current diagnosis for this admission?: Yes Plan Summary: Assessment: Critically ill 79 yo man with acute respiratory failure, septic shock, encephalopathy, FABI, h/o seizure disorder, h/o CVA, h/o SAH, coma,thrombocytopenia, afib Plan: 1. Respiratory: acute respiratory failure. Vent day 6. Will attempt SBP 2. CV: HTN. Pt alternates between sinus bradycardia and afib with a slow ventricular rate. Beta blockers have been stopped. Electrolytes replaced. Continue hydralzine and norvasc 3. Neuro: encephalopathy, coma, seizures. Anoxic encephalopathy. LP attempted by radiology 12/26, but was unsuccessful. Will continue to treat empirically for meningitis with vanc,unasyn rocephin for a total of 7 days. Continue keppra 1 g BID. prn ativan. EEG done yesterday Unable to get MRI while on vent. 4. ID: severe sepsis, possible menigitis, PNA. LP attempt by radiology 08/10 was unsuccessful. Day 6 ATBX. Vanc, unasyn, rocephin. 5. Renal: FABI, CKD III. Cr decreased to 1.62. 6. Heme: thrombocytopenia due to sepsis, resolving. Pt has not been on any heparin products. Pt with bleeding from mouth. s/p 1 unit of platelets on 08/12 7. ENT: bleeding from teeth and gums, poor dentition. Resolved with platelet transfusion. 8. GI: GERD. Gastritis. Continue IV protonix 9. Endocrine: accuchecks, SSI 10 Nutrition: tube feeds 11. Prophlxis: scds. No pharmacologic DVT prophylaxis b/c thrombocytopenia 12. Ethics. Pt is a [facility] of [facility]. Has a very poor prognosis. Pt is now DNR. D/W the [facility] director social service that if pt's condition does not improve, they need to consider withdrawal of care. Critical Care time = 35 min, excluding procedures Critical Time Critical Time (minutes): 35 Level of Care: ICU -: 1. The care of a critical patient is a dynamic process. This note is a account executive sales representative synopsis but static in nature. The timeframe for treatments given in order is not necessarily the actual time these treatments may have been done. 2. This patient requires critical care secondary to ongoing requirements for therapy not offered or safe outside the critical care environment. Transfer to a lower level of care will result in altered life or limb morbidity and mortality. 3. Multidisciplinary rounds completed. 4. ABCDE bundle addressed.
[2019-08-16] MEDS: INSULIN REG, HUMAN 100 UNIT/ML 3 ML VIAL (PYX) SUBCUT SCH ×4 (01:24→17:20)
[2019-08-16] MEDS: AMPICILLIN SODIUM/SULBACTAM NA 3 GM in NORMAL SALINE 100 ML IV SCH (02:17)
[2019-08-16 04:21] LABS: ABSOLUTE BASOPHILS # (AUTO) 0.1 10^3/uL (0.0-0.2); ABSOLUTE EOSINOPHILS # (AUTO) 0.1 10^3/uL (0.0-0.6); ABSOLUTE LYMPHOCYTES (AUTO) 1.1 10^3/uL (0.5-4.7); ABSOLUTE MONOCYTES (AUTO) 0.6 10^3/uL (0.1-1.4); ABSOLUTE NEUT (AUTO) 6.6 10^3/uL (1.7-8.2); BASOPHILS % (AUTO) 0.6 % (0-2); EOSINOPHILS % (AUTO) 1.3 % (0-6); HEMATOCRIT 29.3 % (37.9-51.0); HEMOGLOBIN 9.9 g/dL (13.5-17.0); LYMPHOCYTES % (AUTO) 12.7 % (13-45); MEAN CORPUSCULAR HGB CONC 33.9 g/dL (32.0-36.0); MEAN CORPUSCULAR VOLUME 86 fl (80-97); MONOCYTES % (AUTO) 7.5 % (3-13); PLATELET COUNT 136 10^3/uL (150-450); RED BLOOD COUNT 3.42 10^6/uL (4.35-5.55); RED CELL DISTRIBUTION WIDTH 18.1 % (11.5-14.0); SEGMENTED NEUTROPHILS % (AUTO) 77.9 % (42-78); TOTAL CELLS COUNTED % (AUTO) 100 %; WHITE BLOOD COUNT 8.5 10^3/uL (4.0-10.5)
[2019-08-16 04:36] LABS: ALBUMIN 2.6 g/dL (3.5-5.0); ALKALINE PHOSPHATASE 96 U/L (38-126); ANION GAP 8 (5-19); ASPARTATE AMINO TRANSFERASE 172 U/L (17-59); BILIRUBIN,DIRECT 1.1 mg/dL (0.0-0.4); BILIRUBIN,TOTAL 1.7 mg/dL (0.2-1.3); BLOOD UREA NITROGEN 18 mg/dL (7-20); CALCIUM 8.2 mg/dL (8.4-10.2); CARBON DIOXIDE 23 mmol/L (22-30); CHLORIDE 111 mmol/L (98-107); GLUCOSE 105 mg/dL (75-110); POTASSIUM 3.5 mmol/L (3.6-5.0)
[2019-08-16] MEDS: HYDRALAZINE HCL 50 MG TABLET NG SCH ×3 (06:47→22:45)
[2019-08-16] MEDS: LEVETIRACETAM 1000 MG/NACL-ISO 1,000 MG/100 ML RTUPB IV SCH ×2 (06:47→17:19)
[2019-08-16] MEDS: VANCOMYCIN HCL 750 MG in DEXTROSE 5%-WATER 250 ML IV SCH (06:47)
[2019-08-16] MEDS ORDERED: ACETAMINOPHEN PO PRN (08:42)
[2019-08-16] MEDS ORDERED: LEVETIRACETAM 500 MG TABLET PO PRN (08:42)
[2019-08-16] MEDS ORDERED: LORAZEPAM INJ 2 MG/1 ML VIAL IV PRN (08:45)
[2019-08-16] MEDS: AMLODIPINE BESYLATE 10 MG TABLET NG SCH ×2 (09:11→09:18)
[2019-08-16] MEDS: HYDRALAZINE HCL 50 MG TABLET PO SCH ×2 (09:12→09:17)
[2019-08-16] MEDS ORDERED: (PENDING PHARMACY ID) (Carvedilol [Coreg 25 Mg Tablet] 1 TAB) PO SCH (10:00)
[2019-08-16] MEDS ORDERED: FAMOTIDINE 20 MG TABLET PO SCH (10:00)
[2019-08-16] MEDS ORDERED: LEVETIRACETAM ORAL SOLN 500 MG/5 ML UDCUP NG PRN (11:27)
[2019-08-16] MEDS ORDERED: ACETAMINOPHEN SOLN 325 MG/10.15 ML UDCUP NG PRN (11:33)
[2019-08-16] MEDS ORDERED: ACETAMINOPHEN SOLN 325 MG/10.15 ML UDCUP PO PRN (11:59)
--- NOTE | 2019-08-16 13:27 | PDOC CRITICAL CARE PROG REPORT ---
General Date:: 08/16/19 ICU Day:: 7 Ventilator Day:: 7 Hospital Day:: 7 Resuscitation Status: Do Not Resuscitate Medical Power of Crane Operator Cab: State of [place] Events in the past 12 to 24 Hours:: Willingness to consider withdraw of care. Review of systems relevant to events:: Neuro, respiratory. Reason for ICU Addmission:: acute respirtory failure, septic shock,altered mental status - Medications: Medications reviewed and adjusted accordingly: Yes Vasopressors:: None Sedation:: None Physical Exam Vital Signs: Temp Pulse Resp BP Pulse Ox 97.2 F 81 12 141/70 H 100 08/16/19 08:00 08/16/19 08:00 08/16/19 10:00 08/16/19 09:44 08/16/19 12:31 Intake & Output 08/15/19 08/16/19 08/17/19 06:59 06:59 06:59 Intake Total 943 1092 400 Output Total 1700 1070 220 Balance -757 22 180 Weight 59.2 kg 62.4 kg Weight/Height Weight 62.4 kg Height 5 ft 4 in General appearance: PRESENT: thin Head exam: PRESENT: atraumatic, normocephalic Eye exam: PRESENT: PERRLA, other - Deviated to R side Ear exam: PRESENT: normal external ear exam Mouth exam: PRESENT: moist, tongue midline Teeth exam: PRESENT: poor dentation Respiratory exam: PRESENT: clear to auscultation jason, decreased breath sounds, unlabored Cardiovascular exam: PRESENT: RRR. ABSENT: diastolic murmur, rubs, systolic murmur Vascular exam: PRESENT: normal capillary refill GI/Abdominal exam: PRESENT: normal bowel sounds, soft. ABSENT: distended, guarding, mass, organolmegaly, rebound, tenderness Rectal exam: PRESENT: deferred Gentrourinary exam: PRESENT: indwelling catheter Extremities exam: PRESENT: other - R arm in flexion contracture Musculoskeletal exam: PRESENT: normal inspection Neurological exam: PRESENT: other - Essentially unresponsive. Skin exam: PRESENT: dry, normal color Tubes/Lines: PRESENT: Endotracheal Tube, Central Line, Nasogastic Tube Laboratory/Radiographs Laboratory Results: 08/16/19 04:05 08/16/19 04:05 08/16/19 08/16/19 04:05 04:05 WBC 8.5 RBC 3.42 L Hgb 9.9 L Hct 29.3 L MCV 86 MCH 29.0 MCHC 33.9 RDW 18.1 H Plt Count 136 L Seg Neutrophils % 77.9 Sodium 141.9 Potassium 3.5 L Chloride 111 H Carbon Dioxide 23 Anion Gap 8 BUN 18 Creatinine 1.38 H Est GFR ( Amer) > 60 Glucose 105 Calcium 8.2 L Total Bilirubin 1.7 H AST 172 H Alkaline Phosphatase 96 Total Protein 6.0 L Albumin 2.6 L 08/10/19 08:59 Blood Blood Culture - Final NO GROWTH IN 5 DAYS Impressions: Guidance Fluoroscopy 08/10/19 00:00 IMPRESSION: Unsuccessful lumbar puncture due to severe degenerative changes and osteophyte formations. Findings were discussed with Dr. Atkinson in the ICU. Lumbar Puncture 08/10/19 00:00 IMPRESSION: Unsuccessful lumbar puncture due to severe degenerative changes and osteophyte formations. Findings were discussed with Dr. Atkinson in the ICU. Head CT 08/10/19 08:50 IMPRESSION: CHRONIC CHANGES OF ATROPHY AND MICROVASCULAR ISCHEMIA. NO ACUTE PROCESS. EVIDENCE OF ACUTE STROKE: NO. Chest X-Ray 08/14/19 06:00 IMPRESSION: NO SIGNIFICANT INTERVAL CHANGE. All labs, radiographs, diagnostic studies and EKGs were personally reviewed: Yes In addition, reports of radiographic and diagnostic studies were read: Yes Assessment and Plan - Diagnosis (1) FABI (acute kidney injury) Is this a current diagnosis for this admission?: Yes Plan: Resolved. Cr 1.3 GFR > 60. (2) Acute respiratory failure Qualifiers: Respiratory failure complication: unspecified whether with hypoxia or hypercapnia Qualified Code(s): J96.00 - Acute respiratory failure, unspecified whether with hypoxia or hypercapnia Is this a current diagnosis for this admission?: Yes Plan: Largely due to mental status. He cannot protect airway. Keep intubated. (3) Dementia Qualifiers: Dementia type: vascular dementia Dementia behavioral disturbance: with behavioral disturbance Qualified Code(s): F01.51 - Vascular dementia with behavioral disturbance Is this a current diagnosis for this admission?: Yes Plan: Vascular dementia is a likely cause especially with his hx of hemmorhagic stroke. (4) Encephalopathy Is this a current diagnosis for this admission?: Yes Plan: Mental status worsened by infection and fever to 107.4 (5) H/O: CVA (cerebrovascular accident) Is this a current diagnosis for this admission?: Yes Plan: Hx of SAH (6) Poor dentition Is this a current diagnosis for this admission?: Yes Plan: Chronic. (7) SAH (subarachnoid hemorrhage) Is this a current diagnosis for this admission?: No Plan: Old and not active. (8) Seizure disorder Is this a current diagnosis for this admission?: Yes Plan: No active seizure activity. (9) Septic shock Is this a current diagnosis for this admission?: Yes Plan: Resolved (10) Thrombocytopenia Is this a current diagnosis for this admission?: Yes Plan: Likely due to infection. Observe. Plan Summary: Family to discuss issues. State of [place] would supprot withdraw of care if family is in aggrement. Critical Time Critical Time (minutes): 40 Level of Care: ICU Anticipated discharge: Hospice Within: within 48 hours -: 1. The care of a critical patient is a dynamic process. This note is a business development representative synopsis but static in nature. The timeframe for treatments given in order is not necessarily the actual time these treatments may have been done. 2. This patient requires critical care secondary to ongoing requirements for therapy not offered or safe outside the critical care environment. Transfer to a lower level of care will result in altered life or limb morbidity and mortality. 3. Multidisciplinary rounds completed. 4. ABCDE bundle addressed.
[2019-08-16 17:32] LABS: ANION GAP 9 (5-19); BLOOD UREA NITROGEN 17 mg/dL (7-20); CALCIUM 8.4 mg/dL (8.4-10.2); CARBON DIOXIDE 22 mmol/L (22-30); CHLORIDE 112 mmol/L (98-107); GLUCOSE 99 mg/dL (75-110); POTASSIUM 3.5 mmol/L (3.6-5.0)
[2019-08-16] MEDS ORDERED: ATORVASTATIN CALCIUM 40 MG TABLET PO SCH (22:00)
[2019-08-16] MEDS ORDERED: CARVEDILOL 12.5 MG TABLET PO SCH (22:00)
[2019-08-16] MEDS: FAMOTIDINE 20 MG TABLET NG SCH (22:45)
[2019-08-16] MEDS: ATORVASTATIN CALCIUM 40 MG TABLET NG SCH (22:45)
[2019-08-16] MEDS: CARVEDILOL 12.5 MG TABLET NG SCH (22:45)
[2019-08-17] MEDS: LEVETIRACETAM 1000 MG/NACL-ISO 1,000 MG/100 ML RTUPB IV SCH ×2 (05:29→17:37)
[2019-08-17] MEDS: HYDRALAZINE HCL 50 MG TABLET NG SCH ×3 (05:33→21:31)
[2019-08-17] MEDS ORDERED: PANTOPRAZOLE SODIUM 40 MG PACKET.DR NG SCH (06:00)
[2019-08-17] MEDS ORDERED: PANTOPRAZOLE SODIUM 20 MG TABLET.DR PO SCH (06:00)
[2019-08-17] MEDS ORDERED: AMLODIPINE BESYLATE 5 MG TABLET PO SCH (08:00)
[2019-08-17] MEDS: FAMOTIDINE 20 MG TABLET NG SCH (09:16)
[2019-08-17] MEDS: PANTOPRAZOLE SODIUM 40 MG PACKET.DR NG SCH (09:16)
[2019-08-17] MEDS: CARVEDILOL 12.5 MG TABLET NG SCH ×2 (09:16→21:32)
[2019-08-17] MEDS: AMLODIPINE BESYLATE 5 MG TABLET NG SCH (09:16)
[2019-08-17] MEDS: AMLODIPINE BESYLATE 10 MG TABLET NG SCH (09:17)
--- NOTE | 2019-08-17 12:43 | PDOC CRITICAL CARE PROG REPORT ---
General Date:: 08/17/19 ICU Day:: 8 Ventilator Day:: 8 Hospital Day:: 8 Resuscitation Status: Do Not Resuscitate Medical Power of Counsel: State of [place] Events in the past 12 to 24 Hours:: No change in neurological status. Review of systems relevant to events:: Neuro Reason for ICU Addmission:: acute respirtory failure, septic shock,altered m ental status - Medications: Medications reviewed and adjusted accordingly: Yes Vasopressors:: None Sedation:: None Physical Exam Vital Signs: Temp Pulse Resp BP Pulse Ox 98.9 F 61 12 122/72 100 08/17/19 08:00 08/17/19 10:00 08/17/19 10:00 08/17/19 10:00 08/17/19 11:57 Intake & Output 08/16/19 08/17/19 08/18/19 06:59 06:59 06:59 Intake Total 1092 560 30 Output Total 1070 640 250 Balance 22 -80 -220 Weight 62.4 kg 62.1 kg Weight/Height Weight 62.1 kg Height 5 ft 4 in General appearance: PRESENT: other Exam: Minimally responsive. Head exam: PRESENT: atraumatic, normocephalic Eye exam: PRESENT: other - Eyes will deviate to left. Ear exam: PRESENT: normal external ear exam Mouth exam: PRESENT: moist, tongue midline Respiratory exam: PRESENT: clear to auscultation jason, unlabored. ABSENT: rales, rhonchi, wheezes Cardiovascular exam: PRESENT: RRR. ABSENT: diastolic murmur, rubs, systolic murmur GI/Abdominal exam: PRESENT: normal bowel sounds, soft. ABSENT: distended, guarding, mass, organolmegaly, rebound, tenderness Rectal exam: PRESENT: deferred Gentrourinary exam: PRESENT: indwelling catheter Extremities exam: PRESENT: other - L arm stiifly contracted in a flexion position. No spontaneous movement. Neurological exam: PRESENT: motor sensory deficit Skin exam: PRESENT: normal color Tubes/Lines: PRESENT: Endotracheal Tube, Central Line, Nasogastic Tube Laboratory/Radiographs Laboratory Results: 08/16/19 04:05 08/16/19 16:48 08/16/19 16:48 Sodium 143.3 Potassium 3.5 L Chloride 112 H Carbon Dioxide 22 Anion Gap 9 BUN 17 Creatinine 1.38 H Est GFR ( Amer) > 60 Glucose 99 Calcium 8.4 Impressions: Guidance Fluoroscopy 08/10/19 00:00 IMPRESSION: Unsuccessful lumbar puncture due to severe degenerative changes and osteophyte formations. Findings were discussed with Dr. Atkinson in the ICU. Lumbar Puncture 08/10/19 00:00 IMPRESSION: Unsuccessful lumbar puncture due to severe degenerative changes and osteophyte formations. Findings were discussed with Dr. Atkinson in the ICU. Head CT 08/10/19 08:50 IMPRESSION: CHRONIC CHANGES OF ATROPHY AND MICROVASCULAR ISCHEMIA. NO ACUTE PROCESS. EVIDENCE OF ACUTE STROKE: NO. Chest X-Ray 08/14/19 06:00 IMPRESSION: NO SIGNIFICANT INTERVAL CHANGE. All labs, radiographs, diagnostic studies and EKGs were personally reviewed: Yes In addition, reports of radiographic and diagnostic studies were read: Yes Assessment and Plan - Diagnosis (1) FABI (acute kidney injury) Is this a current diagnosis for this admission?: Yes Plan: Improved and stable. CKD St 2 at this time. (2) Acute respiratory failure Qualifiers: Respiratory failure complication: unspecified whether with hypoxia or hypercapnia Qualified Code(s): J96.00 - Acute respiratory failure, unspecified whether with hypoxia or hypercapnia Is this a current diagnosis for this admission?: Yes Plan: Pt on ventilator due to an inability to protect airway. (3) Dementia Qualifiers: Dementia type: vascular dementia Dementia behavioral disturbance: with behavioral disturbance Qualified Code(s): F01.51 - Vascular dementia with behavioral disturbance Is this a current diagnosis for this admission?: Yes Plan: Likely a strong contributor to his delirium. (4) Encephalopathy Is this a current diagnosis for this admission?: Yes Plan: No change. (5) H/O: CVA (cerebrovascular accident) Is this a current diagnosis for this admission?: Yes Plan: Old stroke remnant visible on CT. Also contributing to mental status and delirium. (6) Poor dentition Is this a current diagnosis for this admission?: Yes Plan: Chronic (7) SAH (subarachnoid hemorrhage) Is this a current diagnosis for this admission?: No Plan: No change. (8) Seizure disorder Is this a current diagnosis for this admission?: Yes Plan: None since admission (9) Septic shock Is this a current diagnosis for this admission?: Yes Plan: Resolved (10) Thrombocytopenia Is this a current diagnosis for this admission?: Yes Plan: Count is 136K. Resolved. Plan Summary: Ideally a withdraw of care is humane as his mental status is unchanged in 8 days. He is stil on the vent. His defecits are most likely irreversible neurologically. I have written a letter to that effect for the [facility] social workers. Critical Time Critical Time (minutes): 40 Level of Care: ICU Anticipated discharge: Hospice Within: within 48 hours -: 1. The care of a critical patient is a dynamic process. This note is a players club representative synopsis but static in nature. The timeframe for treatments given in order is not necessarily the actual time these treatments may have been done. 2. This patient requires critical care secondary to ongoing requirements for therapy not offered or safe outside the critical care environment. Transfer to a lower level of care will result in altered life or limb morbidity and mortality. 3. Multidisciplinary rounds completed. 4. ABCDE bundle addressed.
[2019-08-17] MEDS: ATORVASTATIN CALCIUM 40 MG TABLET NG SCH (21:33)
[2019-08-18] MEDS: HYDRALAZINE HCL 50 MG TABLET NG SCH (05:51)
[2019-08-18] MEDS: LEVETIRACETAM 1000 MG/NACL-ISO 1,000 MG/100 ML RTUPB IV SCH ×2 (05:52→22:10)
[2019-08-18] MEDS: PANTOPRAZOLE SODIUM 40 MG PACKET.DR NG SCH (05:53)
--- NOTE | 2019-08-18 07:58 | PDOC CRITICAL CARE PROG REPORT ---
General Date:: 08/18/19 ICU Day:: 9 Ventilator Day:: 99 Resuscitation Status: Do Not Resuscitate Medical Power of Duct Layer Helper: [facility] Events in the past 12 to 24 Hours:: Talked to [facility] social workers and drafted letter documenting essentially end stage condition of patient. Review of systems relevant to events:: Neuro, respiratory. Reason for ICU Addmission:: acute respirtory failure, septic shock,altered mental status - Medications: Medications reviewed and adjusted accordingly: Yes Vasopressors:: None Sedation:: None. Physical Exam Vital Signs: Temp Pulse Resp BP Pulse Ox 98.1 F 67 12 116/70 100 08/18/19 03:32 08/18/19 02:00 08/18/19 06:00 08/18/19 05:59 08/18/19 06:00 Intake & Output 08/17/19 08/18/19 08/19/19 06:59 06:59 06:59 Intake Total 660 230 Output Total 640 1550 Balance 20 -1320 Weight 62.1 kg 59 kg Weight/Height Weight 59 kg Height 5 ft 4 in General appearance: PRESENT: no acute distress Head exam: PRESENT: atraumatic, normocephalic Eye exam: PRESENT: conjunctiva pink, EOMI, PERRLA. ABSENT: scleral icterus Ear exam: PRESENT: normal external ear exam Mouth exam: PRESENT: moist, tongue midline, other - ETT Respiratory exam: PRESENT: decreased breath sounds, rhonchi, unlabored Cardiovascular exam: PRESENT: RRR. ABSENT: diastolic murmur, rubs, systolic murmur Vascular exam: PRESENT: normal capillary refill Rectal exam: PRESENT: deferred Extremities exam: PRESENT: other - Contracted L arm. Little spontaneous movements of other extremities. Musculoskeletal exam: PRESENT: deformity Neurological exam: PRESENT: other - Moving a bit more. Not following commands. Not able to eat or protect airway. Skin exam: PRESENT: normal color Tubes/Lines: PRESENT: Endotracheal Tube, Central Line, Nasogastic Tube Laboratory/Radiographs Laboratory Results: 08/16/19 04:05 08/16/19 16:48 Impressions: Guidance Fluoroscopy 08/10/19 00:00 IMPRESSION: Unsuccessful lumbar puncture due to severe degenerative changes and osteophyte formations. Findings were discussed with Dr. Atkinson in the ICU. Lumbar Puncture 08/10/19 00:00 IMPRESSION: Unsuccessful lumbar puncture due to severe degenerative changes and osteophyte formations. Findings were discussed with Dr. Atkinson in the ICU. Head CT 08/10/19 08:50 IMPRESSION: CHRONIC CHANGES OF ATROPHY AND MICROVASCULAR ISCHEMIA. NO ACUTE PROCESS. EVIDENCE OF ACUTE STROKE: NO. Chest X-Ray 08/14/19 06:00 IMPRESSION: NO SIGNIFICANT INTERVAL CHANGE. All labs, radiographs, diagnostic studies and EKGs were personally reviewed: Yes In addition, reports of radiographic and diagnostic studies were read: Yes Assessment and Plan - Diagnosis (1) FABI (acute kidney injury) Is this a current diagnosis for this admission?: Yes Plan: Not in ARF. CKD St 2 (2) Acute respiratory failure Qualifiers: Respiratory failure complication: unspecified whether with hypoxia or hyp ercapnia Qualified Code(s): J96.00 - Acute respiratory failure, unspecified whether with hypoxia or hypercapnia Is this a current diagnosis for this admission?: Yes Plan: Unable to protect airway and deal with secretions (3) Dementia Qualifiers: Dementia type: vascular dementia Dementia behavioral disturbance: with behavioral disturbance Qualified Code(s): F01.51 - Vascular dementia with behavioral disturbance Is this a current diagnosis for this admission?: Yes Plan: Chronic and irreversible. (4) Encephalopathy Is this a current diagnosis for this admission?: Yes Plan: This is final factor secondary to recent sepsis making his mental status incompatible with residential, meaningful survival. Today we may perform a terminal extubation knowing his life will likely end. (5) H/O: CVA (cerebrovascular accident) Is this a current diagnosis for this admission?: Yes Plan: Contributing factor to mental status (6) Poor dentition Is this a current diagnosis for this admission?: Yes Plan: Chronic (7) SAH (subarachnoid hemorrhage) Is this a current diagnosis for this admission?: No Plan: Chronic (8) Seizure disorder Is this a current diagnosis for this admission?: Yes Plan: Known noted. (9) Septic shock Is this a current diagnosis for this admission?: Yes Plan: Resolved. (10) Thrombocytopenia Is this a current diagnosis for this admission?: Yes Plan: Resolved. Plan Summary: Most likely terminal wean today. Critical Time Critical Time (minutes): 35 Level of Care: ICU Anticipated discharge: Hospice Within: within 24 hours -: 1. The care of a critical patient is a dynamic process. This note is a r epresentative synopsis but static in nature. The timeframe for treatments given in order is not necessarily the actual time these treatments may have been done. 2. This patient requires critical care secondary to ongoing requirements for therapy not offered or safe outside the critical care environment. Transfer to a lower level of care will result in altered life or limb morbidity and mortali ty. 3. Multidisciplinary rounds completed. 4. ABCDE bundle addressed.
[2019-08-18] MEDS: AMLODIPINE BESYLATE 10 MG TABLET NG SCH (09:23)
[2019-08-18] MEDS: AMLODIPINE BESYLATE 5 MG TABLET NG SCH (09:23)
[2019-08-18] MEDS: CARVEDILOL 12.5 MG TABLET NG SCH (09:23)
--- NOTE | 2019-08-18 22:59 | PDOC PROGRESS REPORT ---
Subjective Progress Note for:: 08/18/19 Subjective:: Pt is an 79 yo man who resides in a NH. He has a h/o CVA, SAH, hemiplegia, dementia, HTN, who presented to the ED today. He was found to be severly hyperthermic with a temp of 108 at the GA. He was also altered. He was intubated by EMS. In the ED, he was cooled and was given IVF. He was also started on levophed and started on broad spectrum ATBX. He underwent a head CT which was negative for any acute findings. Upon arrival to the ICU, pt is intubated and unresponsive. He is currently off levophed and has an SBP in the 130s.Patient is virtually unresponsive Reason For Visit: ACUTE RESPIRATORY FAILURE, SEPTIC SHICK, ALTERED Physical Exam Vital Signs: Temp Pulse Resp BP Pulse Ox 97.4 F 60 18 139/61 H 100 08/18/19 20:47 08/18/19 20:47 08/18/19 20:47 08/18/19 20:47 08/18/19 20:47 Intake & Output 08/17/19 08/18/19 08/19/19 06:59 06:59 06:59 Intake Total 660 230 200 Output Total 640 1550 210 Balance 20 -1320 -10 Weight 62.1 kg 59 kg General appearance: PRESENT: other - Patient is unresponsive Respiratory exam: PRESENT: clear to auscultation jason Cardiovascular exam: PRESENT: +S1, +S2 Results Laboratory Results: 08/16/19 04:05 08/16/19 16:48 Impressions: Guidance Fluoroscopy 08/10/19 00:00 IMPRESSION: Unsuccessful lumbar puncture due to severe degenerative changes and osteophyte formations. Findings were discussed with Dr. Atkinson in the ICU. Lumbar Puncture 08/10/19 00:00 IMPRESSION: Unsuccessful lumbar puncture due to severe degenerative changes and osteophyte formations. Findings were discussed with Dr. Atkinson in the ICU. Head CT 08/10/19 08:50 IMPRESSION: CHRONIC CHANGES OF ATROPHY AND MICROVASCULAR ISCHEMIA. NO ACUTE PROCESS. EVIDENCE OF ACUTE STROKE: NO. Chest X-Ray 08/14/19 06:00 IMPRESSION: NO SIGNIFICANT INTERVAL CHANGE. Assessment & Plan - Diagnosis (1) Septic shock Is this a current diagnosis for this admission?: Yes Plan: Patient is moribund DNR status poor prognosis - Time Time Spent with patient: 35 or more minutes
[2019-08-19] MEDS: LEVETIRACETAM 1000 MG/NACL-ISO 1,000 MG/100 ML RTUPB IV SCH ×2 (09:27→21:01)
--- NOTE | 2019-08-19 11:54 | PDOC PROGRESS REPORT ---
Subjective Progress Note for:: 08/19/19 Subjective:: Patient is currently not responding Recently moved from the ICU With a history of the cerebrovascular accident subarachnoid hemorrhage hemiplegia dementia hypertension's Reason For Visit: ACUTE RESPIRATORY FAILURE, SEPTIC SHICK, ALTERED Physical Exam Vital Signs: Temp Pulse Resp BP Pulse Ox 97.5 F 71 17 138/71 H 100 08/18/19 23:41 08/18/19 23:41 08/18/19 23:41 08/18/19 23:41 08/18/19 23:41 Intake & Output 08/18/19 08/19/19 08/20/19 06:59 06:59 06:59 Intake Total 230 200 Output Total 1550 545 Balance -1320 -345 Weight 59 kg 59 kg Physical Exam: Not responding General appearance: PRESENT: thin Eye exam: PRESENT: PERRLA Respiratory exam: PRESENT: decreased breath sounds Cardiovascular exam: PRESENT: +S1, +S2 Neurological exam: PRESENT: altered Results Laboratory Results: 08/16/19 04:05 08/16/19 16:48 Impressions: Guidance Fluoroscopy 08/10/19 00:00 IMPRESSION: Unsuccessful lumbar puncture due to severe degenerative changes and osteophyte formations. Findings were discussed with Dr. Atkinson in the ICU. Lumbar Puncture 08/10/19 00:00 IMPRESSION: Unsuccessful lumbar puncture due to severe degenerative changes and osteophyte formations. Findings were discussed with Dr. Atkinson in the ICU. Head CT 08/10/19 08:50 IMPRESSION: CHRONIC CHANGES OF ATROPHY AND MICROVASCULAR ISCHEMIA. NO ACUTE PROCESS. EVIDENCE OF ACUTE STROKE: NO. Chest X-Ray 08/14/19 06:00 IMPRESSION: NO SIGNIFICANT INTERVAL CHANGE. Assessment & Plan - Diagnosis (1) Septic shock Is this a current diagnosis for this admission?: Yes (2) Dementia Qualifiers: Dementia type: vascular dementia Dementia behavioral disturbance: with behavioral disturbance Qualified Code(s): F01.51 - Vascular dementia with behavioral disturbance Is this a current diagnosis for this admission?: Yes (3) Encephalopathy Is this a current diagnosis for this admission?: Yes (4) H/O: CVA (cerebrovascular accident) Is this a current diagnosis for this admission?: Yes - Time Time Spent with patient: 15-24 minutes Level of Care: TELE Medications reviewed and adjusted accordingly: Yes Anticipated discharge: Other Within: Other - Plan Summary Plan Summary: Patient is currently a DNR Hopefully having to the hospice
[2019-08-19] MEDS ORDERED: HYDRALAZINE HCL INJ/PF 20 MG/1 ML SDV IV PRN (17:58)
[2019-08-20] MEDS ORDERED: DEXTROSE 50%-WATER 25 GM/50 ML DISP.SYRIN IV ONE (00:57)
[2019-08-20] MEDS ORDERED: DEXTROSE 50%-WATER SYRINGE 25 GM/50 ML DOSE IV PRN (01:30)
[2019-08-20] MEDS ORDERED: DEXTROSE 40% GEL 15 GM TUBE X 2 PO PRN (01:30)
[2019-08-20] MEDS ORDERED: DEXTROSE 50%-WATER SYRINGE 12.5 GM/25 ML DOSE IV PRN (01:30)
[2019-08-20] MEDS ORDERED: GLUCAGON,HUMAN RECOMB 1 MG INJ IM PRN (01:30)
[2019-08-20] MEDS ORDERED: DEXTROSE 40% GEL 15 GM TUBE PO PRN (01:30)
[2019-08-20] MEDS: LEVETIRACETAM 1000 MG/NACL-ISO 1,000 MG/100 ML RTUPB IV SCH ×2 (09:30→21:05)
--- NOTE | 2019-08-20 11:12 | PDOC PROGRESS REPORT ---
Subjective Progress Note for:: 08/20/19 Subjective:: Patient is currently doing same Not responding as usual Reason For Visit: ACUTE RESPIRATORY FAILURE, SEPTIC SHICK, ALTERED Physical Exam Vital Signs: Temp Pulse Resp BP Pulse Ox 97.4 F 71 16 160/69 H 96 08/20/19 00:33 08/20/19 00:33 08/20/19 00:33 08/20/19 00:33 08/20/19 05:36 Intake & Output 08/19/19 08/20/19 08/21/19 06:59 06:59 06:59 Intake Total 200 200 100 Output Total 545 975 Balance -345 -775 100 Weight 59 kg 60.4 kg General appearance: PRESENT: no acute distress Eye exam: PRESENT: PERRLA Mouth exam: PRESENT: neck supple Respiratory exam: PRESENT: decreased breath sounds Cardiovascular exam: PRESENT: +S1, +S2 GI/Abdominal exam: PRESENT: normal bowel sounds, soft Neurological exam: PRESENT: altered Results Laboratory Results: 08/16/19 04:05 08/16/19 16:48 Impressions: Guidance Fluoroscopy 08/10/19 00:00 IMPRESSION: Unsuccessful lumbar puncture due to severe degenerative changes and osteophyte formations. Findings were discussed with Dr. Atkinson in the ICU. Lumbar Puncture 08/10/19 00:00 IMPRESSION: Unsuccessful lumbar puncture due to severe degenerative changes and osteophyte formations. Findings were discussed with Dr. Atkinson in the ICU. Head CT 08/10/19 08:50 IMPRESSION: CHRONIC CHANGES OF ATROPHY AND MICROVASCULAR ISCHEMIA. NO ACUTE PROCESS. EVIDENCE OF ACUTE STROKE: NO. Chest X-Ray 08/14/19 06:00 IMPRESSION: NO SIGNIFICANT INTERVAL CHANGE. Assessment & Plan - Diagnosis (1) Septic shock Is this a current diagnosis for this admission?: Yes (2) Dementia Qualifiers: Dementia type: vascular dementia Dementia behavioral disturbance: with behavioral disturbance Qualified Code(s): F01.51 - Vascular dementia with behavioral disturbance Is this a current diagnosis for this admission?: Yes (3) Encephalopathy Is this a current diagnosis for this admission?: Yes (4) H/O: CVA (cerebrovascular accident) Is this a current diagnosis for this admission?: Yes - Time Time Spent with patient: 15-24 minutes Level of Care: TELE Medications reviewed and adjusted accordingly: Yes Anticipated discharge: Other Within: Other - Plan Summary Plan Summary: Overall very poor prognosis
[2019-08-21] MEDS ORDERED: HYDRALAZINE HCL INJ/PF 20 MG/1 ML SDV IV ONE (01:15)
[2019-08-21] MEDS: LEVETIRACETAM 1000 MG/NACL-ISO 1,000 MG/100 ML RTUPB IV SCH (10:40)
[2019-08-21] MEDS ORDERED: ONDANSETRON HCL INJ/PF 4 MG/2 ML SDV IV PRN (13:00)
[2019-08-21] MEDS ORDERED: MORPHINE SULFATE 10 MG/ML INJ IV PRN (21:42)
--- NOTE | 2019-08-21 21:45 | PDOC PROGRESS REPORT ---
Subjective Progress Note for:: 08/21/19 Subjective:: Patient is virtually unresponsive, he is the [place] of the state, my understanding is that the state is in agreement that patient should be comfort care, patient status will be changed to comfort care, patient not expected to do well Reason For Visit: ACUTE RESPIRATORY FAILURE, SEPTIC SHICK, ALTERED Physical Exam Vital Signs: Temp Pulse Resp BP Pulse Ox 98.9 F 85 22 H 152/91 H 100 08/21/19 16:00 08/21/19 16:00 08/21/19 16:00 08/21/19 16:00 08/21/19 16:00 Intake & Output 08/20/19 08/21/19 08/22/19 06:59 06:59 06:59 Intake Total 200 200 100 Output Total 975 750 200 Balance -775 -550 -100 Weight 60.4 kg 60 kg 60 kg General appearance: PRESENT: other - Patient is unresponsive Results Laboratory Results: 08/16/19 04:05 08/16/19 16:48 Impressions: Guidance Fluoroscopy 08/10/19 00:00 IMPRESSION: Unsuccessful lumbar puncture due to severe degenerative changes and osteophyte formations. Findings were discussed with Dr. Atkinson in the ICU. Lumbar Puncture 08/10/19 00:00 IMPRESSION: Unsuccessful lumbar puncture due to severe degenerative changes and osteophyte formations. Findings were discussed with Dr. Atkinson in the ICU. Head CT 08/10/19 08:50 IMPRESSION: CHRONIC CHANGES OF ATROPHY AND MICROVASCULAR ISCHEMIA. NO ACUTE PROCESS. EVIDENCE OF ACUTE STROKE: NO. Chest X-Ray 08/14/19 06:00 IMPRESSION: NO SIGNIFICANT INTERVAL CHANGE. Assessment & Plan - Diagnosis (1) Septic shock Is this a current diagnosis for this admission?: Yes Plan: Extremely poor prognosis patient is moribund - Time Time Spent with patient: 15-24 minutes
--- NOTE | 2019-08-22 21:25 | PDOC PROGRESS REPORT ---
Subjective Progress Note for:: 08/22/19 Subjective:: Patient condition about the same, awaiting disposition Reason For Visit: ACUTE RESPIRATORY FAILURE, SEPTIC SHICK, ALTERED Physical Exam Vital Signs: Temp Pulse Resp BP Pulse Ox 98.2 F 105 H 19 197/96 H 100 08/21/19 21:41 08/21/19 21:41 08/21/19 21:41 08/21/19 21:41 08/21/19 21:41 Intake & Output 08/21/19 08/22/19 08/23/19 06:59 06:59 06:59 Intake Total 200 100 Output Total 750 550 Balance -550 -450 Weight 60 kg 59.3 kg General appearance: PRESENT: no acute distress Eye exam: PRESENT: PERRLA Respiratory exam: PRESENT: clear to auscultation jason Cardiovascular exam: PRESENT: +S1, +S2 GI/Abdominal exam: PRESENT: soft Neurological exam: PRESENT: alert Results Laboratory Results: 08/16/19 04:05 08/16/19 16:48 Impressions: Guidance Fluoroscopy 08/10/19 00:00 IMPRESSION: Unsuccessful lumbar puncture due to severe degenerative changes and osteophyte formations. Findings were discussed with Dr. Atkinson in the ICU. Lumbar Puncture 08/10/19 00:00 IMPRESSION: Unsuccessful lumbar puncture due to severe degenerative changes and osteophyte formations. Findings were discussed with Dr. Atkinson in the ICU. Head CT 08/10/19 08:50 IMPRESSION: CHRONIC CHANGES OF ATROPHY AND MICROVASCULAR ISCHEMIA. NO ACUTE PROCESS. EVIDENCE OF ACUTE STROKE: NO. Chest X-Ray 08/14/19 06:00 IMPRESSION: NO SIGNIFICANT INTERVAL CHANGE. Assessment & Plan - Diagnosis (1) Septic shock Is this a current diagnosis for this admission?: Yes - Time Time Spent with patient: 15-24 minutes
[2019-08-23 02:35] VITALS: BP 162/86
--- NOTE | 2019-08-23 13:44 | PDOC TRANSFER SUMMARY ---
Impression - Admit/DC Date/PCP Admission Date/Primary Care Provider: 08/10/19 10:55 NI MORATAYA MD Discharge Date: 08/23/19 - Discharge Diagnosis (1) Septic shock Is this a current diagnosis for this admission?: Yes (2) FABI (acute kidney injury) Is this a current diagnosis for this admission?: Yes (3) Acute respiratory failure Is this a current diagnosis for this admission?: Yes (4) Dementia Is this a current diagnosis for this admission?: Yes (5) Encephalopathy Is this a current diagnosis for this admission?: Yes (6) H/O: CVA (cerebrovascular accident) Is this a current diagnosis for this admission?: Yes (7) Hyperthermia Is this a current diagnosis for this admission?: Yes (8) Poor dentition Is this a current diagnosis for this admission?: Yes - Additional Information Resuscitation Status: Comfort Measures Only Referrals: NI MORATAYA MD [Primary Care Provider] - Follow up as needed Home Medications: Acetaminophen [Mapap] 5 ml PO Q4HP PRN 08/10/19 Amlodipine Besylate [Norvasc 5 mg Tablet] 5 mg PO QAM 08/10/19 Ammonium Lactate [Lac-Hydrin 12% Lotion 225Gm/Bottle] 1 applic TP ASDIR PRN 08/10/19 Atorvastatin Calcium [Lipitor 40 mg Tablet] 40 mg PO QHS 08/10/19 Carvedilol [Coreg 25 mg Tablet] 1 tab PO BID 08/10/19 Clonidine HCl [Catapres] 0.2 mg PO TID 08/10/19 Hydralazine HCl [Apresoline 50 mg Tablet] 50 mg PO TID 08/10/19 Levetiracetam [Keppra] 500 mg PO BIDP PRN 08/10/19 Melatonin [Melatonin 3 mg Tablet] 3 mg PO QHS 08/10/19 Omeprazole 20 mg PO QAM 08/10/19 Sertraline HCl [Zoloft] 100 mg PO QAM 08/10/19 History of Present Illiness History of Present Illness: HPI: Pt is an 79 yo man who resides in a [place]. He has a h/o CVA, SAH, hemiplegia, dementia, HTN, who presented to the ED for evaluation. He was found to be severly hyperthermic with a temp of 108 at the [place]. He was also altered. He was intubated by EMS. In the ED, he was cooled and was given IVF. He was also started on levophed and started on broad spectrum ATBX. He underwent a head CT which was negative for any acute findings. Upon arrival to the ICU, pt is intubated and unresponsive. He is currently off levophed and has an SBP in the 130s. Hospital Course Hospital Course: Patient was managed by the subassembly supervisor in ICU, when he arrived unresponsive in septic shock, he was treated with antibiotic, intravenous vasopressors, he was ultimately downgraded to medical floor virtually unresponsive. Patient remained unresponsive since being on the medical floor, he was a DNR when he arrived from ICU, I could not obtain any history from the patient, he is a oliveira of the [facility], after consultation with the [facility] his status was transitioned to comfort care, plan is to transfer to hospice home. Physical Exam Vital Signs: Temp Pulse Resp BP Pulse Ox 98.7 F 84 14 162/86 H 98 08/23/19 00:00 08/23/19 00:00 08/23/19 00:00 08/23/19 00:00 08/23/19 00:00 Intake & Output 08/22/19 08/23/19 08/24/19 06:59 06:59 06:59 Intake Total 100 Output Total 550 175 Balance -450 -175 Weight 59.3 kg 58.3 kg General appearance: PRESENT: other - Patient is unresponsive Respiratory exam: PRESENT: clear to auscultation jason Cardiovascular exam: PRESENT: +S1, +S2 Results Laboratory Results: WBC 8.5 10^3/uL (4.0-10.5) 08/16/19 04:05 RBC 3.42 10^6/uL (4.35-5.55) L 08/16/19 04:05 Hgb 9.9 g/dL (13.5-17.0) L 08/16/19 04:05 Hct 29.3 % (37.9-51.0) L 08/16/19 04:05 MCV 86 fl (80-97) 08/16/19 04:05 MCH 29.0 pg (27.0-33.4) 08/16/19 04:05 MCHC 33.9 g/dL (32.0-36.0) 08/16/19 04:05 RDW 18.1 % (11.5-14.0) H 08/16/19 04:05 Plt Count 136 10^3/uL (150-450) L 08/16/19 04:05 Lymph % (Auto) 12.7 % (13-45) L 08/16/19 04:05 [place] % (Auto) 7.5 % (3-13) 08/16/19 04:05 Eos % (Auto) 1.3 % (0-6) 08/16/19 04:05 Baso % (Auto) 0.6 % (0-2) 08/16/19 04:05 Absolute Neuts (auto) 6.6 10^3/uL (1.7-8.2) 08/16/19 04:05 Absolute Lymphs (auto) 1.1 10^3/uL (0.5-4.7) 08/16/19 04:05 Absolute Monos (auto) 0.6 10^3/uL (0.1-1.4) 08/16/19 04:05 Absolute Eos (auto) 0.1 10^3/uL (0.0-0.6) 08/16/19 04:05 Absolute Basos (auto) 0.1 10^3/uL (0.0-0.2) 08/16/19 04:05 Total Counted 100 08/10/19 08:12 Seg Neutrophils % 77.9 % (42-78) 08/16/19 04:05 Seg Neuts % (Manual) 79 % (42-78) H 08/10/19 08:12 Band Neutrophils % 1 % (3-5) L 08/10/19 08:12 Lymphocytes % (Manual) 14 % (13-45) 08/10/19 08:12 Monocytes % (Manual) 5 % (3-13) 08/10/19 08:12 Eosinophils % (Manual) 0 % (0-6) 08/10/19 08:12 Basophils % (Manual) 1 % (0-2) 08/10/19 08:12 Abs Neuts (Manual) 7.5 10^3/uL (1.7-8.2) 08/10/19 08:12 Abs Lymphs (Manual) 1.3 10^3/uL (0.5-4.7) 08/10/19 08:12 Abs Monocytes (Manual) 0.5 10^3/uL (0.1-1.4) 08/10/19 08:12 Absolute Eos (Manual) 0.0 10^3/uL (0.0-0.6) 08/10/19 08:12 Abs Basophils (Manual) 0.1 10^3/uL (0.0-0.2) 08/10/19 08:12 Nucleated RBCs 1 /100 WBC (0) 08/10/19 08:12 Platelet Estimate Cancelled 08/11/19 04:09 Platelet Comment DECREASED 08/10/19 08:12 Poikilocytosis SLIGHT 08/10/19 08:12 Tear Drop Cells SLIGHT 08/10/19 08:12 PT 20.1 SEC (11.4-15.4) H 08/12/19 19:45 INR 1.69 08/12/19 19:45 Carbonic Acid 0.93 mmol/L (1.05-1.35) L 08/12/19 04:56 HCO3/H2CO3 Ratio 26:1 08/12/19 04:56 ABG pH 7.53 (7.35-7.45) H 08/12/19 04:56 ABG pCO2 31.0 mmHg (35-45) L 08/12/19 04:56 ABG pO2 119.1 mmHg (80-100) H 08/12/19 04:56 ABG HCO3 25.1 mmol/L (20-24) H 08/12/19 04:56 ABG Total CO2 26.1 mmol/L (23-27) 08/12/19 04:56 ABG O2 Saturation 98.7 % (94-98) H 08/12/19 04:56 ABG Base Excess 2.7 mmol/L 08/12/19 04:56 FiO2 25% 08/12/19 04:56 Sodium 143.3 mmol/L (137-145) 08/16/19 16:48 Potassium 3.5 mmol/L (3.6-5.0) L 08/16/19 16:48 Chloride 112 mmol/L (98-107) H 08/16/19 16:48 Carbon Dioxide 22 mmol/L (22-30) 08/16/19 16:48 Anion Gap 9 (5-19) 08/16/19 16:48 BUN 17 mg/dL (7-20) 08/16/19 16:48 Creatinine 1.38 mg/dL (0.52-1.25) H 08/16/19 16:48 Est GFR ( Amer) > 60 (>60) 08/16/19 16:48 Est GFR (MDRD) Non-Af 49 (>60) L 08/16/19 16:48 Glucose 99 mg/dL (75-110) 08/16/19 16:48 POC Glucose 56 mg/dL (70-110) L 08/21/19 17:59 Lactic Acid 6.5 mmol/L (0.7-2.1) H 08/10/19 14:57 Calcium 8.4 mg/dL (8.4-10.2) 08/16/19 16:48 Phosphorus 3.2 mg/dL (2.5-4.5) 08/12/19 23:07 Magnesium 1.5 mg/dL (1.6-2.3) L 08/12/19 23:07 Total Bilirubin 1.7 mg/dL (0.2-1.3) H 08/16/19 04:05 Direct Bilirubin 1.1 mg/dL (0.0-0.4) H 08/16/19 04:05 Neonat Total Bilirubin Not Reportable 08/16/19 04:05 Neonat Direct Bilirubin Not Reportable 08/16/19 04:05 Neonat Indirect Bili Not Reportable 08/16/19 04:05 AST 172 U/L (17-59) H 08/16/19 04:05 ALT 494 U/L (<50) 08/16/19 04:05 Alkaline Phosphatase 96 U/L (38-126) 08/16/19 04:05 Ammonia < 8.7 umol/L (9-33) L 08/11/19 04:09 Total Protein 6.0 g/dL (6.3-8.2) L 08/16/19 04:05 Albumin 2.6 g/dL (3.5-5.0) L 08/16/19 04:05 TSH 1.48 uIU/mL (0.47-4.68) 08/11/19 04:09 Urine Color STRAW 08/10/19 09:30 Urine Appearance CLEAR 08/10/19 09:30 Urine pH 8.0 (5.0-9.0) 08/10/19 09:30 Ur Specific [place] 1.004 08/10/19 09:30 Urine Protein NEGATIVE mg/dL (NEGATIVE) 08/10/19 09:30 Urine Glucose (UA) NEGATIVE mg/dL (NEGATIVE) 08/10/19 09:30 Urine Ketones NEGATIVE mg/dL (NEGATIVE) 08/10/19 09:30 Urine Blood LARGE (NEGATIVE) H 08/10/19 09:30 Urine Nitrite NEGATIVE (NEGATIVE) 08/10/19 09:30 Urine Bilirubin NEGATIVE (NEGATIVE) 08/10/19 09:30 Urine Urobilinogen NEGATIVE mg/dL (<2.0) 08/10/19 09:30 Ur Leukocyte Esterase NEGATIVE (NEGATIVE) 08/10/19 09:30 Urine WBC (Auto) 6 /HPF 08/10/19 09:30 Urine RBC (Auto) >182 /HPF 08/10/19 09:30 U Hyaline Cast (Auto) 1 /LPF 08/10/19 09:30 Urine Bacteria (Auto) TRACE /HPF 08/10/19 09:30 Uric Acid Cryst (Auto) TOO NUMEROUS TO CNT /HPF 08/10/19 09:30 Urine Mucus (Auto) RARE /LPF 08/10/19 09:30 Urine Ascorbic Acid NEGATIVE (NEGATIVE) 08/10/19 09:30 Stl C. Difficile GDH Ag NEGATIVE (NEGATIVE) 08/10/19 20:25 Stl C.difficile Tox A&B NEGATIVE (NEGATIVE) 08/10/19 20:25 Time Trough Drawn 0940 08/14/19 09:40 Vancomycin Trough 9.7 ug/mL (5.0-20.0) 08/14/19 09:40 Urine Opiates Screen NEGATIVE 08/10/19 09:30 Urine Methadone Screen NEGATIVE 08/10/19 09:30 Ur Barbiturates Screen NEGATIVE 08/10/19 09:30 Ur Phencyclidine Scrn NEGATIVE 08/10/19 09:30 Ur Amphetamines Screen NEGATIVE 08/10/19 09:30 U Benzodiazepines Scrn UNCONFIRMED POSITIVE 08/10/19 09:30 Urine Cocaine Screen NEGATIVE 08/10/19 09:30 U Marijuana (THC) Screen NEGATIVE 08/10/19 09:30 Influenza A (Rapid) NEGATIVE (NEGATIVE) 08/11/19 12:42 Influenza B (Rapid) NEGATIVE (NEGATIVE) 08/11/19 12:42 Slides for Path Review Cancelled 08/11/19 04:09 Blood Type A POSITIVE 08/12/19 19:45 Impressions: Guidance Fluoroscopy 08/10/19 00:00 IMPRESSION: Unsuccessful lumbar puncture due to severe degenerative changes and osteophyte formations. Findings were discussed with Dr. Atkinson in the ICU. Lumbar Puncture 08/10/19 00:00 IMPRESSION: Unsuccessful lumbar puncture due to severe degenerative changes and osteophyte formations. Findings were discussed with Dr. Atkinson in the ICU. Chest X-Ray 08/10/19 07:40 IMPRESSION: Endotracheal tube tip at the thoracic inlet, 9.2 cm above the darius. Consider advancing. Head CT 08/10/19 08:50 IMPRESSION: CHRONIC CHANGES OF ATROPHY AND MICROVASCULAR ISCHEMIA. NO ACUTE PROCESS. EVIDENCE OF ACUTE STROKE: NO. Chest X-Ray 08/11/19 08:21 IMPRESSION: 1. The tip of the endotracheal tube projects 2.5 cm above the darius. 2. The side hole of the enteric tube projects at the level of the gastroesophageal junction and should be repositioned (i.e. advanced forward 5 cm). Chest X-Ray 08/14/19 06:00 IMPRESSION: NO SIGNIFICANT INTERVAL CHANGE. Stroke Is this a Stroke Patient?: No Acute Heart Failure - Is this a Heart Failure Patient?: No
== END 2019-08-23 17:05 | disposition short-term general hospital (02) | DRG 870 ==
LOC: ER 07:31 → EH 10:55 → ICU 13:23 → 5 08-18 13:32
PROVIDERS: ADMIT Internal Medicine; ATTEND Internal Medicine
PROC: 5A1955Z Respiratory Ventilation, Greater than 96 Consecutive Hours (ICD-10-PCS; principal; 2019-08-10)
PROC: 3E02340 Introduction of Influenza Vaccine into Muscle, Percutaneous Approach (ICD-10-PCS; 2019-08-10)
PROC: 0BH17EZ Insertion of Endotracheal Airway into Trachea, Via Natural or Artificial Opening (ICD-10-PCS; 2019-08-10)
PROC: 00JU3ZZ Inspection of Spinal Canal, Percutaneous Approach (ICD-10-PCS; 2019-08-10)
PROC: 30233R1 Transfusion of Nonautologous Platelets into Peripheral Vein, Percutaneous Approach (ICD-10-PCS; 2019-08-12)
DX: A41.9 Sepsis, unspecified organism (principal); R65.21 Severe sepsis with septic shock; I60.9 Nontraumatic subarachnoid hemorrhage, unspecified; J96.00 Acute respiratory failure, unspecified whether with hypoxia or hypercapnia; T67.01XA Heatstroke and sunstroke, initial encounter; N17.9 Acute kidney failure, unspecified; I69.354 Hemiplegia and hemiparesis following cerebral infarction affecting left non-dominant side; F01.51 Vascular dementia, unspecified severity, with behavioral disturbance; Z66 Do not resuscitate; G40.909 Epilepsy, unspecified, not intractable, without status epilepticus; N18.3 Chronic kidney disease, stage 3 (moderate); I12.9 Hypertensive chronic kidney disease with stage 1 through stage 4 chronic kidney disease, or unspecified chronic kidney disease; F31.9 Bipolar disorder, unspecified; E78.5 Hyperlipidemia, unspecified; K21.9 Gastro-esophageal reflux disease without esophagitis; M10.9 Gout, unspecified; E78.00 Pure hypercholesterolemia, unspecified; X58.XXXA Exposure to other specified factors, initial encounter; D69.59 Other secondary thrombocytopenia; Z23 Encounter for immunization; Z78.1 Physical restraint status; Z79.899 Other long term (current) drug therapy; Z88.1 Allergy status to other antibiotic agents; Z82.49 Family history of ischemic heart disease and other diseases of the circulatory system
CPT/HCPCS: 36415; 36430; 62270; 70450; 71045; 77003; 80053; 80202; 80307; 81001; 82140; 82803; 82962; 83605; 83735; 84100; 84443; 85025; 85027; 85610; 86900; 86901; 87040; 87070; 87077; 87150; 87205; 87324; 87449; 87804; 93005; 93010; 94002; 94003; 95819; 96365; 96367; 96368; 99291; 99292; C9113; J0290; J0295; J0360; J0696; J1940; J1953; J2060; J2704; J3370; J3475; J3480; J3490; J7030; J7050; J7060; J7120; P9035